=== PATIENT | female | born 1940 | race Caucasian/White ===

== ENCOUNTER 2020-04-14 10:24 | Outpatient (CLI) | payer MEDICARE, BC, SELFPAY ==
[2020-04-14 10:51] LABS: Basophils Percent Auto 0.1 % (0.2-1.2); Eosinophils Absolute Auto 0.1 K/mm3 (0-0.3); Eosinophils Percent Auto 1.4 % (0-4.4); Hematocrit 40.9 % (37.0-47.0); Immature Granulocyte Absolute 0.01 K/mm3 (0.00-0.031); Immature Granulocyte Percent A 0.1 % (0-0.5); Lymphocytes Percent Auto 22.4 % (18.3-44.2); Mean Corpuscular HGB Conc 31.8 g/dl (32-36); Mean Corpuscular Hemoglobin 29.2 pg (26-34); Mean Corpuscular Volume 91.9 fl (80-100); Mean Platelet Volume 10.2 fl (7.4-10.4); Monocytes Absolute Auto 0.6 K/mm3 (0.1-0.6); Monocytes Percent Auto 7.6 % (2.6-8.5); Neutrophils Absolute Auto 5.2 K/mm3 (1.3-6.7); Neutrophils Percent Auto 68.4 % (45.5-73.1); Platelet Count Result 216 k/mm3 (150-375); Red Blood Count 4.45 M/mm3 (4.2-5.4); Red Cell Distribution Width 13.2 % (11.5-14.5); White Blood Count 7.6 K/mm3 (4.5-10.0)
[2020-04-14 11:04] LABS: Blood Urea Nitrogen 16 mg/dL (7-17); Calcium 9.3 mg/dL (8.4-10.2); Carbon Dioxide 32 mmol/L (22-30); Chloride 100 mmol/L (98-107); Estimated Glomerular Filt Rate 43; Glucose 90 mg/dL (65-105); Potassium 4.4 mmol/L (3.4-5.0); Sodium 137 mmol/L (137-145)
== END 2020-04-14 10:25 | disposition home or self-care (01) ==
LOC: ANHLAB 10:32
PROVIDERS: PCP Family Medicine
DX: N18.3 Chronic kidney disease, stage 3 (moderate) (principal)
CPT/HCPCS: 36415; 80048; 85025

== ENCOUNTER 2020-05-28 15:09 | Outpatient (CLI) | payer MEDICARE, BC, SELFPAY ==
--- NOTE | ~2020-05-28 | XR_ITS ---
EXAMINATION: XR lumbar spine 2-3V DATE: 05/28/2020 15:42 INDICATION: Low back pain TECHNIQUE: Anteroposterior and lateral views of the lumbar spine, and cone-down lateral view of the l umbosacral junction were obtained. COMPARISON: 04/11/2017 FINDINGS: There is vertebroplasty change in a T12 burst fracture. There are 31 degrees of lumbar levo scoliosis. The lumbar vertebral body heights are maintained. There is severe loss of intervertebral d isc space height at L5-S1 and mild loss of intervertebral disc space height at L1-2 and L2-3. No lumb ar fracture is identified. There is moderate facet osteoarthritis of the lower lumbar spine. Mild jass ateral hip osteoarthritis is present. Cholecystectomy clips are noted in the right upper quadrant. Th e bowel gas pattern is normal. IMPRESSION: 1. Levoscoliosis and moderate spondylosis of the lumbar spine without acute findings or significant i nterval change. Reviewed, dictated and finalized at location A. IMPRESSION: 1. Levoscoliosis and moderate spondylosis of the lumbar spine without acute fin dings or significant interval change.
== END 2020-05-28 15:10 | disposition home or self-care (01) ==
LOC: ANHIMG 15:19
DX: M54.5 Low back pain (principal); M41.86 Other forms of scoliosis, lumbar region; M47.816 Spondylosis without myelopathy or radiculopathy, lumbar region
CPT/HCPCS: 72100

== ENCOUNTER → 2022-04-28 12:53 | Outpatient (CLI) | payer MEDICARE, BC, SELFPAY ==
--- NOTE | ~2022-04-28 | XR_ITS ---
EXAMINATION: XR hip LT 2V w AP pelvis INDICATION: Left hip pain TECHNIQUE: AP view the pelvis and two views left hip are obtained. COMPARISON: None available FINDINGS: Bone alignment is normal. There is no fracture. There is mild osteoarthritis of the hips. C alcified atherosclerosis is noted. IMPRESSION: 1. Mild osteoarthritis of the hips. Reviewed, dictated and finalized at location F.
== END ==
PROVIDERS: PCP Family Medicine; Visit Provider Family Medicine
DX: M25.552 Pain in left hip (principal); M16.0 Bilateral primary osteoarthritis of hip
CPT/HCPCS: 73502

== ENCOUNTER 2022-05-09 09:36 | Emergency (ER) | payer MEDICARE, BC, SELFPAY ==
--- NOTE | ~2022-05-09 | XR_ITS ---
XR chest 2V DATE: 05/09/2022 10:53 INDICATION: Chest/epigastric pain TECHNIQUE: AP and lateral views COMPARISON: 04/05/2017 portable AP chest 05/09/2022 CT thoracic and lumbar spine FINDINGS: Atrial septal closure device. Borderline heart size. Aortic calcification and tortuosity. N o hilar or mediastinal enlargement. No pulmonary infiltrate or consolidation, pleural effusion or pulmonary vascular congestion or pneumo thorax. Status post cholecystectomy. Diffuse osteopenia. Vertebroplasty at T12 burst fracture.. IMPRESSION: Status post atrial septoplasty Borderline heart size Aortic atherosclerosis No active pulmonary disease Status post vertebroplasty at T12 burst fracture Osteopenia Reviewed, dictated and finalized at location A.
--- NOTE | ~2022-05-09 | CT_ITS ---
EXAMINATION: CT thoracic lumbar wo con DATE: 05/09/2022 10:50 INDICATION: Fall. Right leg pain. Bilateral hip pain. TECHNIQUE: Computed tomography (CT) of the thoracic and lumbar spine was performed without intravenou s contrast. Automated exposure control and iterative reconstruction technique were employed. The dose -length product was 520.64 mGy-cm. COMPARISON: CT abdomen and pelvis 04/11/2017 FINDINGS: CT THORACIC SPINE: There is mild scarring at the lung apices. There is mild emphysema. There is 22 de grees dextroscoliosis of thoracolumbar spine. There is a chronic burst fracture of T12 with 3/5 loss of height, changes of vertebroplasty, and retropulsion of bone 3 mm into central spinal canal. There is mildly decreased disc height at T4-T5, T5-T6, and T6-T7 and moderately decreased disc height at T7 -T8, T8-T9, and T12-L1. There is multilevel mild facet joint osteoarthritis. No neural foraminal sten osis. There is mild central canal stenosis at T12. CT LUMBAR SPINE: There is severe atrophy of right kidney. There is 27 degrees levoscoliosis of lumbar spine. Vertebral body heights are normal. There is severely decreased disc height at L2-L3 and moder ately decreased disc height at L5-S1 with endplate remodeling. The following disc levels are specific ally discussed: L1-L2: The disc is bulging. There is mild bilateral facet joint osteoarthritis. There is mild right n eural foraminal stenosis. There is mild central canal stenosis. L2-L3: The disc is bulging. There is moderate right and mild left facet joint osteoarthritis. There i s moderate right and mild left neural foraminal stenosis. There is mild central canal stenosis. L3-L4: The disc is bulging. There is severe bilateral facet joint osteoarthritis. There is mild bilat eral neural foraminal stenosis. There is mild central canal stenosis. L4-L5: The disc is bulging. There is severe bilateral facet joint osteoarthritis. There is mild bilat eral neural foraminal stenosis. There is mild central canal stenosis. L5-S1: The disc is bulging. There is moderate right and severe left facet joint osteoarthritis. There is mild right and moderate left neural foraminal stenosis. There is mild central canal stenosis. IMPRESSION: 1. No acute fracture. 2. Moderate thoracic spondylosis and severe lumbar spondylosis. 3. Scoliosis. Reviewed, dictated and finalized at location B.
[2022-05-09 09:33] VITALS: BP 173/73; PULSE 82; RESP 11; O2SAT 100
--- NOTE | 2022-05-09 09:56 | ED.GENADULT ---
HPI - General Adult General Chief complaint: Extremity Injury, Lower Stated complaint: hip pain Time Seen by Provider: 05/09/22 09:49 Source: patient Mode of arrival: ambulatory Limitations: no limitations History of Present Illness HPI narrative: 82-year-old female brought in today by EMS presents with complaints of increased lower back pain and inability to get out of bed this morning due to pain. Daughter is at bedside which is who patient currently lives with. Over the last 3 weeks patient has had multiple falls. She is seen by primary x-rays were ordered. X-rays negative for anything acute. Patient has had no falls since the x-rays. Per daughter she thought patient was getting better but this morning patient was unable to get up out of bed so called 911. Patient notes increased pain and increased urination. Patient denies shortness of breath, chest pain, numbness to the lower extremities, incontinence urine or bowel, saddle paresthesia, abdominal pain, or diarrhea. Patient is vaccinated against flu and COVID. Related Data Home Medications Medication Instructions Recorded Confirmed amlodipine 5 mg tablet 5 mg PO DAILY 05/09/22 05/09/22 aspirin 81 mg tablet 81 mg PO DAILY 05/09/22 05/09/22 duloxetine 30 mg capsule,delayed 30 mg PO DAILY 05/09/22 05/09/22 release gabapentin 600 mg tablet 600 mg PO BID 05/09/22 05/09/22 hydrochlorothiazide 12.5 mg tablet 12.5 mg PO DAILY 05/09/22 05/09/22 hydrocodone 7.5 mg-acetaminophen 1 tablet PO TID PRN Pain 05/09/22 05/09/22 300 mg tablet irbesartan 150 mg tablet 150 mg PO DAILY 05/09/22 05/09/22 omeprazole 40 mg capsule,delayed mg 05/09/22 release Allergies Allergy/AdvReac Type Severity Reaction Status Date / Time No Known Allergies Allergy Unknown Unverified 05/09/22 09:47 Review of Systems Review of Systems: CONSTITUTIONAL: Denies fever, chills, or sweats. EYES: Denies visual changes, redness, or discharge. ENT: Denies rhinorrhea, congestion, sore throat, or otalgia. CARDIOVASCULAR: Denies chest pain, palpitations, or edema. RESPIRATORY: Denies cough or dyspnea. GASTROINTESTINAL: Denies abdominal pain, nausea, vomiting, or diarrhea. GENITOURINARY: Denies dysuria or hematuria. SKIN: Denies rash or itching. MUSCULOSKELETAL: Inability to get out of bed with assistance this morning. Back pain radiating up. Denies joint pain, or myalgia. NEUROLOGIC: Weakness. Denies headache, numbness, dizziness, or weakness. PSYCHIATRIC: Denies anxiety or depression. [facility] Past Medical History Medical History (Updated 05/09/22 @ 13:02 by Leona Tripp APRN) Chronic back pain greater than 3 months duration Essential hypertension History of CVA (cerebrovascular accident) Mass of skin of right shoulder Narcotic dependence Skin neoplasm Subcutaneous mass Family History Family History Father Acute myocardial infarction Sibling Family history of pancreatic cancer Family history of type 2 diabetes mellitus Social History Social History Smoking status: Current every day smoker Alcohol intake: current Exam Narrative: GENERAL: Well-appearing, well-nourished, and in no acute distress. HEAD: Normocephalic, atraumatic. EYES: PERRLA and EOMI. NECK: Supple. No adenopathy or masses. No carotid bruits or JVD CHEST: Clear to auscultation. No respiratory distress. No wheezes rales or rhonchi HEART: Regular rate and rhythm. No murmur heard. Normal peripheral pulses. ABDOMEN: Soft, nontender, nondistended, normal active bowel sounds. Back: No ecchymotic areas noted. No spinal process tenderness. EXTREMITIES: Normal range of motion. No edema. SKIN: Warm, dry, no rash. NEURO: No focal deficits. Alert and oriented x3. PSYCH: Normal mood and affect. Course Course Emergency Course: Labs and CTs discussed with daughter. Daughter at bedside. Patient does live wi
[2022-05-09 10:24] VITALS: BP 150/63; PULSE 78; RESP 12; O2SAT 99
[2022-05-09 10:40] LABS: Basophils Percent Auto 0.2 % (0.2-1.2); Eosinophils Absolute Auto 0.2 K/mm3 (0-0.3); Eosinophils Percent Auto 2.3 % (0-4.4); Hematocrit 37.8 % (37.0-47.0); Hemoglobin 11.9 g/dL (12.0-15.0); Immature Granulocyte Absolute 0.02 K/mm3 (0.00-0.031); Immature Granulocyte Percent A 0.2 % (0-0.5); Lymphocytes Absolute Auto 1.07 K/mm3 (0.9-3.2); Lymphocytes Percent Auto 12.8 % (18.3-44.2); Mean Corpuscular HGB Conc 31.5 g/dl (32-36); Mean Corpuscular Volume 92.2 fl (80-100); Mean Platelet Volume 9.7 fl (7.4-10.4); Monocytes Absolute Auto 0.5 K/mm3 (0.1-0.6); Monocytes Percent Auto 6.5 % (2.6-8.5); Neutrophils Absolute Auto 6.5 K/mm3 (1.3-6.7); Platelet Count Result 289 k/mm3 (150-375); Red Cell Distribution Width 12.9 % (11.5-14.5); White Blood Count 8.3 K/mm3 (4.5-10.0)
[2022-05-09 10:50] LABS: Alanine Aminotransferase 12 U/L (6-35); Albumin Level 4.1 g/dL (3.5-5.1); Alkaline Phosphatase 115 U/L (38-126); Anion Gap 5 mmol/L (8-16); Aspartate Amino Transferase 25 U/L (14-36); Bilirubin,Total 0.6 mg/dL (0.2-1.3); Blood Urea Nitrogen 21 mg/dL (7-17); Carbon Dioxide 29 mmol/L (22-30); Chloride 105 mmol/L (98-107); Estimated CRCL calculation 31 ml/min; Estimated Glomerular Filt Rate 60; Glucose 98 mg/dL (65-110); Potassium 4.3 mmol/L (3.4-5.0); Sodium 139 mmol/L (137-145)
[2022-05-09 11:10] VITALS: BP 162/61; PULSE 75; RESP 12; O2SAT 98
[2022-05-09 11:16] LABS: Appearance Urine Clear (Clear); Bilirubin Urine Negative (Negative); Blood Urine Negative (Negative); Glucose Urine UA Negative (Negative); Ketones Urine Negative (Negative); Leukocyte Esterase Ur Negative LEU/UL (Negative); Nitrate Urine Negative (Negative); Protein Urine Negative (Negative); Urobilinogen Urine 0.2 mg/dL (<2.0)
[2022-05-09 11:19] LABS: Add Urine Microscopic? NO; Color Urine Light Yellow (Yellow)
[2022-05-09 13:43] VITALS: BP 144/67; PULSE 89; RESP 16; O2SAT 95
== END 2022-05-09 13:46 | disposition home or self-care (01) ==
PROVIDERS: Emergency Provider Nurse Practitioner Family; PCP Family Medicine
DX: M54.50 Low back pain, unspecified (principal); G89.29 Other chronic pain; G30.9 Alzheimer's disease, unspecified; F02.80 Dementia in other diseases classified elsewhere, unspecified severity, without behavioral disturbance, psychotic disturbance, mood disturbance, and anxiety; I10 Essential (primary) hypertension; F17.210 Nicotine dependence, cigarettes, uncomplicated; Z79.82 Long term (current) use of aspirin; Z79.891 Long term (current) use of opiate analgesic; Z86.73 Personal history of transient ischemic attack (TIA), and cerebral infarction without residual deficits; W19.XXXA Unspecified fall, initial encounter
CPT/HCPCS: 36415; 51701; 71046; 72128; 72131; 80053; 81003; 85025; 99284

== ENCOUNTER 2022-08-22 11:55 | Inpatient (IN) | payer MEDICARE, BC, SELFPAY ==
[2022-08-22] VITALS (22 sets, daily range): BP systolic 126–166; BP diastolic 53–109; PULSE 69–94; RESP 11–20; TEMP 36.8; O2SAT 93–100; BMI 51.9
--- NOTE | ~2022-08-22 | US_ITS ---
EXAMINATION: US venous doppler [facility] DATE: 08/22/2022 14:36 INDICATION: Lower limb swelling TECHNIQUE: Grayscale ultrasound images without and with compression and Doppler ultrasound images of the bilateral lower extremity veins were obtained. COMPARISON: None. FINDINGS: Noncompressible deep venous thrombosis in one of the paired right peroneal veins of the calf. The sec ond right peroneal vein is patent. The visualized portions of right common femoral vein, profunda (de ep) femoral vein, femoral vein, popliteal vein, posterior tibial veins and greater saphenous vein out flow are patent. The visualized portions of left common femoral vein, profunda femoral vein, femoral vein, popliteal v ein, posterior tibial veins, peroneal veins and greater saphenous vein outflow are patent. IMPRESSION: 1. Right calf [id number] deep venous thrombosis in one of the paired right peroneal veins. Reviewed, dictated and finalized at location A. IMPRESSION: 1. Right calf [id number] deep venous thrombosis in one of the paired right peroneal veins.
--- NOTE | ~2022-08-22 | XR_ITS ---
EXAMINATION: XR chest 1V 08/22/2022 13:18 INDICATION: Altered mental status PROCEDURE: AP view of the chest COMPARISON: 05/09/2022 FINDINGS: The lungs are clear. There are changes of atrial septal plasty. There is atherosclerosis an d ectasia of the aorta. There is evidence for chronic granulomatous disease. The cardiomediastinal si lhouette is within normal limits. There are no pleural effusions. There is no pneumothorax suspecte d. IMPRESSION: 1: NO ACUTE CARDIOPULMONARY DISEASE. Reviewed, dictated and finalized at location B.
--- NOTE | ~2022-08-22 | CT_ITS ---
EXAMINATION: CT brain wo con INDICATION: Transient alteration of awareness COMPARISON: 05/12/2018 TECHNIQUE: Standard unenhanced head CT. The dose-length product (DLP) was 605.33 mGy-cm. The mA was a djusted according to patient size. Iterative reconstruction technique was employed. FINDINGS: There is no acute intraparenchymal hemorrhage. No evidence of mass lesion. No evidence of a cute infarction. There is encephalomalacia in the left frontal lobe at the site of prior infarction. Old cerebellar infarcts are also noted. There is moderate periventricular and subcortical hypodensity probably related to small vessel ischemic disease. There is moderate prominence of the sulci and jamilah tricles related to cerebral atrophy. Intracranial calcified cerebral atherosclerosis is noted. There are no extra-axial collections. There is no mass effect or midline shift. Changes in the globes are l ikely from ocular lens surgery. The visualized sinuses and mastoid air cells are well aerated. IMPRESSION: 1. Areas of prior infarction without acute intracranial abnormality. 2. Age related findings. Reviewed, dictated and finalized at location A.
--- NOTE | ~2022-08-22 | CT_ITS ---
EXAMINATION: CTA chest PE protocol DATE: 08/24/2022 18:13 INDICATION: Lower limb swelling. Deep venous thrombosis. Elevated d-dimer. TECHNIQUE: Computed tomography (CT) pulmonary angiogram of the chest was performed with 100 mL Omnipa que-350 intravenous contrast. Additional 3D reconstructions utilizing coronal maximum intensity proje ction (MIP) were performed. Automated exposure control and iterative reconstruction technique were em ployed. The dose-length product was 220.17 mGy-cm. COMPARISON: None FINDINGS: Excellent contrast opacification of the pulmonary arteries. There is mild streak artifact from dense contrast in the superior vena cava and right atrium. Mild scattered respiratory motion artifact most prominent at the lung bases where it decreases sensitivity in some of the smaller subsegmental pulmon lisseth arteries. Small filling defect consistent with pulmonary embolism in a subsegmental pulmonary art eries in the posterior basilar segment of the right lower lobe. No other pulmonary emboli. Mild emphy sema with mild biapical pleural-parenchymal scarring additional mild atelectasis/scarring at the medi al left lung base. Very small posterior layering left pleural effusion. No pneumonia, pulmonary edema , pneumothorax or right-sided pleural effusion. Cardiomegaly. Atherosclerotic and/or artery calcifica tion. Amplatz type ASD closure device in expected position. Atherosclerotic calcification along the n ormal caliber thoracic aorta. No pathologically enlarged thoracic lymphadenopathy. Cholecystectomy cl ips at the gallbladder fossa. Severe atrophy of the visualized portion of the right kidney. No change since thoracic spine CT dated 05/09/2022 in a T12 burst fracture with 60% vertebral body height loss and changes of prior vertebroplasty. More recent L1 burst fracture with 30% vertebral body height los s and 4 mm retropulsion which is new since the prior CT. IMPRESSION: 1. Single pulmonary embolism in subsegmental pulmonary artery of the right lower lobe. 2. Mild emphysema. 3. Very small left pleural effusion. 4. Cardiomegaly. 5. Age-indeterminate L1 burst fracture, new since 05/09/2022 Reviewed, dictated and finalized at location A. IMPRESSION: 1. Single pulmonary embolism in subsegmental pulmonary artery of the right lowe r lobe. 2. Mild emphysema. 3. Very small left pleural effusion. 4. Cardiomegaly. 5. Age-indeterminate L1 burst fracture, new since 05/09/2022
--- NOTE | 2022-08-22 12:19 | ECG_ITS ---
Measurements Intervals [place] Rate: 80 P: 1 NM: 136 QRS: -15 QRSD: 93 T: 73 QT: 432 QTc: 500 Interpretive Statements SINUS RHYTHM VENTRICULAR COUPLET AND VENTRICULAR PREMATURE COMPLEX BORDERLINE ST-T WAVE ABNORMALITY- HIGH LATERAL LEADS BASELINE ARTIFACT- I, II, III, AVR, AVL, AVF BORDERLINE ECG NO PREVIOUS ECG AVAILABLE FOR COMPARISON Electronically Signed On 08-22-2022 12:51:45 CDT by Rome Nava D.O.
[2022-08-22 12:39] LABS: Basophils Percent Auto 0.2 % (0.2-1.2); Eosinophils Percent Auto 0.2 % (0-4.4); Hematocrit 38.7 % (37.0-47.0); Hemoglobin 12.7 g/dL (12.0-15.0); Immature Granulocyte Absolute 0.07 K/mm3 (0.00-0.031); Immature Granulocyte Percent A 0.6 % (0-0.5); Lymphocytes Absolute Auto 2.13 K/mm3 (0.9-3.2); Lymphocytes Percent Auto 18.7 % (18.3-44.2); Mean Corpuscular HGB Conc 32.8 g/dl (32-36); Mean Corpuscular Volume 88.4 fl (80-100); Mean Platelet Volume 9.4 fl (7.4-10.4); Monocytes Percent Auto 8.5 % (2.6-8.5); Neutrophils Absolute Auto 8.2 K/mm3 (1.3-6.7); Neutrophils Percent Auto 71.8 % (45.5-73.1); Platelet Count Result 339 k/mm3 (150-375); Red Blood Count 4.38 M/mm3 (4.2-5.4); Red Cell Distribution Width 13.8 % (11.5-14.5); White Blood Count 11.4 K/mm3 (4.5-10.0)
[2022-08-22 12:54] LABS: Alanine Aminotransferase 25 U/L (6-35); Albumin Level 3.7 g/dL (3.5-5.1); Alkaline Phosphatase 92 U/L (38-126); Anion Gap 12 mmol/L (8-16); Aspartate Amino Transferase 38 U/L (14-36); Bilirubin,Total 0.6 mg/dL (0.2-1.3); Blood Urea Nitrogen 14 mg/dL (7-17); Calcium 8.5 mg/dL (8.4-10.2); Carbon Dioxide 36 mmol/L (22-30); Chloride 81 mmol/L (98-107); Estimated CRCL calculation 37 ml/min; Estimated Glomerular Filt Rate > 60; Glucose 103 mg/dL (65-110); Potassium 2.5 mmol/L (3.4-5.0); Sodium 129 mmol/L (137-145)
[2022-08-22 12:55] LABS: Partial Thromboplastin Time 25.3 SECONDS (22.3-36.8); Prothrombin Time 13.1 Seconds (11.1-14.7)
--- NOTE | 2022-08-22 13:02 | ED.GENADULT ---
HPI - General Adult General Chief complaint: Altered Mental Status Stated complaint: Given Wrong Medications, Altered Time Seen by Provider: 08/22/22 12:51 History of Present Illness HPI narrative: this is an 82-year-old female presenting ED with altered mental status. She lives at a assisted living. This morning she received the wrong medications Due to a medical mix up. Medications she received included several multivitamins as well as montelukast and an ARB. The patient did not receive her own hypertensive. The patient herself does not know when she is in the hospital. She is A&O x3 but is slightly confused. She denies chest pain, difficulty breathing, abdominal pain, urinary symptoms, GI symptoms. Related Data Home Medications Medication Instructions Recorded Confirmed amlodipine 5 mg tablet 5 mg PO DAILY 05/09/22 05/09/22 aspirin 81 mg tablet 81 mg PO DAILY 05/09/22 05/09/22 duloxetine 30 mg capsule,delayed 30 mg PO DAILY 05/09/22 05/09/22 release gabapentin 600 mg tablet 600 mg PO BID 05/09/22 05/09/22 hydrochlorothiazide 12.5 mg tablet 12.5 mg PO DAILY 05/09/22 05/09/22 hydrocodone 7.5 mg-acetaminophen 1 tablet PO TID PRN Pain 05/09/22 05/09/22 300 mg tablet irbesartan 150 mg tablet 150 mg PO DAILY 05/09/22 05/09/22 omeprazole 40 mg capsule,delayed mg 05/09/22 release Allergies Allergy/AdvReac Type Severity Reaction Status Date / Time No Known Allergies Allergy Unknown Unverified 05/09/22 09:47 Review of Systems Review of Systems: CONSTITUTIONAL: Denies night sweats. EYES: No eye pain ENT: Denies rhinorrhea CARDIOVASCULAR: Denies palpitations RESPIRATORY: Denies hemoptysis GASTROINTESTINAL: Denies hematemesis GENITOURINARY: Denies hematuria. SKIN: Denies rash MUSCULOSKELETAL: Denies myalgia. NEUROLOGIC: Denies weakness. PSYCHIATRIC: Denies delusions PMFSH Past Medical History Medical History Chronic back pain greater than 3 months duration Essential hypertension History of CVA (cerebrovascular accident) Mass of skin of right shoulder Narcotic dependence Skin neoplasm Subcutaneous mass Family History Family History Father Acute myocardial infarction Sibling Family history of pancreatic cancer Family history of type 2 diabetes mellitus Social History Social History Smoking status: Current every day smoker Alcohol intake: current Exam Narrative: APPEARANCE: No apparent distress. A&O x3 Head atraumatic. EYES: PERRLA/EOMI, NOSE: Normal no drainage NECK: Supple, Trachea midline RESPIRATORY: CTAB, No increased work of breathing. CARDIOVASCULAR: S1S2 appreciated. patient has lower extremity edema of the left greater than right ABDOMINAL: Soft, nontender, nondistended, MUSCULOSKELETAl: No obvious deformities NEURO: Alert. Moving 4/4 extremities SKIN:: Warm, dry. Normal color PSYCHIATRIC: Normal affect Course Vital Signs Vital signs: Vital Signs Pulse Rate 85 08/22/22 12:04 Respiratory Rate 14 08/22/22 12:04 Pulse Oximetry 99 08/22/22 12:04 Temperature 98.2 F 08/22/22 12:05 Pulse Rate 80 08/22/22 13:41 Respiratory Rate 15 08/22/22 13:41 Blood Pressure 145/79 H 08/22/22 13:41 Pulse Oximetry 100 08/22/22 13:41 Oxygen Delivery Room Air 08/22/22 12:05 Medical Decision Making [facility] Narrative Medical decision making narrative: this is an 82-year-old woman who lives in assisted living coming to the ED for altered mental status. There was a mixup of her medications this morning. Review the medications that were switched and none of them should cause altered mental status. A broad workup has been ordered including blood cultures, CT of the head, chest x-ray and EKG. Lab work was sent for potassium of 2.5. This will be repleted by IV as well as orally. Patient arnold
[2022-08-22 13:16] LABS: Appearance Urine Slightly Cloudy (Clear); Bilirubin Urine 1+ (Negative); Blood Urine 2+ (Negative); Color Urine Yellow (Yellow); Glucose Urine UA Negative (Negative); Ketones Urine Trace mg/dL (Negative); Leukocyte Esterase Ur 3+ LEU/UL (Negative); Nitrate Urine Negative (Negative); Protein Urine 1+ mg/dL (Negative); Specific Grav Ur 1.015 (1.001-1.035)
[2022-08-22] MEDS: SODIUM CHLORIDE 0.9% IV 1,000 ML 999 ML IV CONT (13:31)
[2022-08-22] MEDS: POTASSIUM CHLORIDE 20 MEQ TABLET 40 MEQ PO (13:31)
[2022-08-22] MEDS: POTASSIUM CHLORIDE INJ 40 MEQ in SODIUM CHLORIDE 0.9% IV 500 ML 130 MEQ IVPB ×2 (13:31→21:50)
[2022-08-22 13:39] LABS: SARS-CoV-2 RNA PCR Negative
[2022-08-22 13:40] LABS: Bacteria Urine Trace /hpf; Mucus Urine Rare /lpf; RBC Urine 21-50 /hpf (0-2); Squamous Epithelial Cell Urine Many /hpf (Few); WBC Urine >75 /hpf
[2022-08-22 13:55] LABS: Magnesium 2.1 mg/dL (1.6-2.3)
[2022-08-22 14:11] LABS: Add Urine Microscopic? YES
--- NOTE | 2022-08-22 15:30 | PM.IMHP ---
H&P: HPI History of Present Illness Date/Time: 08/22/22 15:30 Chief Complaint: Confusion after receiving the wrong medications. Narrative: This is a pleasant 82-year-old female with dementia and hypertension who presented to the ED for evaluation of confusion after receiving the wrong medications. She is a fair historian and her daughter at bedside provides additional history, with the patient's permission. The patient lives in assisted living at [place] and today she was inadvertently given the wrong medications to include several multivitamins, montelukast, and an ARB. The daughter was notified of this medication error and she went to visit her mother at which time she wanted her to be brought in for evaluation as she seemed to be more confused than usual. The patient's vital signs were stable on arrival to the emergency department. Workup was significant for a white blood cell count of 11.4, sodium 129, potassium 2.5, chloride 81, carbon dioxide 36. UA was nitrite negative but was leukocyte esterase positive with greater than 75 wbc's and trace bacteria however many squamous cells were noted. With further questioning the patient was recently treated for urinary tract infection, perhaps 2 weeks ago or so, but the patient continues to have symptoms including mild dysuria, urgency, and frequency. She has perhaps not been eating and drinking as much as usual but otherwise she does not feel on well. She denies fever, chills, sweats, cold and flu symptoms, chest pain, shortness of breath, focal weakness, paresthesias, facial droop, dysarthria, dysphagia, nausea, vomiting, and diarrhea. Review of Systems Review of Systems: Twelve systems were reviewed. The patient has chronic back pain due to spinal arthritis for which she takes gabapentin, duloxetine, and hydrocodone as needed. She has not had any recent change in medications. She ambulates with a walker but the last several weeks she has been more weak than usual, attributed to her urinary tract infection. She has had a couple of slow motion falls where she slowly goes down to the floor onto her side. She has not had any head trauma or loss of consciousness. Except as documented, all other systems were reviewed and are negative. 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 Code status: Full code. Smoking status: Former smoker Alcohol intake: never Alcohol use details: Rare alcohol use. Substance use: never Additional living arrangements comments: Assisted living at [facility] in [place]. Spiritual care concerns: No Meds Home Medications and Allergies Home Medications Medication Instructions Recorded Confirmed Type amlodipine 5 mg tablet 5 mg PO DAILY 05/09/22 08/22/22 History aspirin 81 mg tablet 81 mg PO DAILY 05/09/22 08/22/22 History duloxetine 30 mg capsule,delayed 30 mg PO DAILY 05/09/22 08/22/22 History release gabapentin 600 mg tablet 600 mg PO BID 05/09/22 08/22/22 History hydrochlorothiazide 12.5 mg tablet 12.5 mg PO DAILY 05/09/22 08/22/22 History hydrocodone 7.5 mg-acetaminophen 1 tablet PO TID PRN Pain 05/09/22 08/22/22 History 300 mg tablet omeprazole 40 mg capsule,delayed 40 mg PO DAILY 05/09/22 08/22/22 History release potassi
--- NOTE | 2022-08-22 16:25 | ADMGEN ---
This patient, Rhea Dimas, was admitted to [facility] Surg Room 307-02. Patient/family oriented to hospital policies and general routines including ID bracelet, bed and alarms, visiting hours, pain management, procedures, bathroom and other care routines, personal items, smoking policy, room service/diet, and visiting hours. Information on how to activate the Rapid Response Team has been discussed. Patient/Family are encouraged to report perceived risks to care and to ask questions if they do not understand what they are told or what they should do.
[2022-08-22 23:02] LABS: Anion Gap 6 mmol/L (8-16); Blood Urea Nitrogen 13 mg/dL (7-17); Calcium 8.4 mg/dL (8.4-10.2); Carbon Dioxide 32 mmol/L (22-30); Chloride 94 mmol/L (98-107); Estimated CRCL calculation 46 ml/min; Estimated Glomerular Filt Rate > 60; Glucose 99 mg/dL (65-110); Potassium 2.8 mmol/L (3.4-5.0); Sodium 132 mmol/L (137-145)
[2022-08-23] MEDS: POTASSIUM CHLORIDE 20 MEQ TABLET 40 MEQ PO (00:30)
[2022-08-23] MEDS: GABAPENTIN 300 MG CAPSULE 600 MG PO ×3 (00:30→22:00)
[2022-08-23] MEDS: SODIUM CHLORIDE 0.9% IV 1,000 ML 100 ML IV CONT (01:24)
[2022-08-23] MEDS: POTASSIUM CHLORIDE INJ 40 MEQ in SODIUM CHLORIDE 0.9% IV 500 ML 130 MEQ IVPB (02:10)
[2022-08-23] MEDS: HYDROcodone/acetaminophen (*CRX) 7.5-325 MG TABLET 1 TAB PO ×2 (02:37→22:00)
[2022-08-23 06:00] LABS: Hematocrit 36.7 % (37.0-47.0); Hemoglobin 11.9 g/dL (12.0-15.0); Mean Corpuscular HGB Conc 32.4 g/dl (32-36); Mean Corpuscular Volume 89.5 fl (80-100); Mean Platelet Volume 9.8 fl (7.4-10.4); Platelet Count Result 306 k/mm3 (150-375); Red Cell Distribution Width 14.4 % (11.5-14.5); White Blood Count 9.2 K/mm3 (4.5-10.0)
[2022-08-23 06:21] LABS: Alanine Aminotransferase 23 U/L (6-35); Alkaline Phosphatase 89 U/L (38-126); Anion Gap 5 mmol/L (8-16); Aspartate Amino Transferase 31 U/L (14-36); Bilirubin,Total 0.5 mg/dL (0.2-1.3); Blood Urea Nitrogen 9 mg/dL (7-17); Calcium 8.5 mg/dL (8.4-10.2); Carbon Dioxide 33 mmol/L (22-30); Chloride 96 mmol/L (98-107); Estimated CRCL calculation 46 ml/min; Estimated Glomerular Filt Rate > 60; Glucose 92 mg/dL (65-110); Magnesium 1.9 mg/dL (1.6-2.3); Potassium 3.5 mmol/L (3.4-5.0); Sodium 134 mmol/L (137-145)
[2022-08-23 08:00] VITALS: BP 148/53; PULSE 80; PULSE 94; RESP 14; TEMP 36.8; O2SAT 98
[2022-08-23] MEDS: ASPIRIN 81 MG ENTERIC TABLET PO (08:46)
[2022-08-23] MEDS: amLODIPine BESYLATE 5 MG TABLET PO (08:46)
[2022-08-23] MEDS: POTASSIUM CHLORIDE 10 MEQ TABLET.ER PO (08:46)
[2022-08-23] MEDS: PANTOPRAZOLE 40 MG TABLET PO (08:46)
[2022-08-23] MEDS: ENOXAPARIN 40 MG/0.4 ML SYRINGE SUB-Q (08:47)
[2022-08-23] MEDS: DULoxetine HCL 30 MG CAPSULE.DR PO (08:47)
--- NOTE | 2022-08-23 10:51 | PM.IMPN ---
Progress Note: A&P Assessment and Plan (1) Weakness: Code(s): R53.1 - Weakness Status: Acute Assessment and Plan: Due to a combination of chronic debility, dehydration, electrolyte abnormalities, and possible urinary tract infection. Initiate fall precautions. PT / OT consulted. (2) Dehydration: Code(s): E86.0 - Dehydration Status: Acute Assessment and Plan: IV fluids. (3) Hypokalemia: Code(s): E87.6 - Hypokalemia Status: Acute Assessment and Plan: Monitor. Hydrochlorothiazide on hold (4) Urinary tract infection: Code(s): N39.0 - Urinary tract infection, site not specified Status: Acute Assessment and Plan: UA looks contaminated culture pending IV antibiotics. (5) Dementia: Code(s): F03.90 - Unspecified dementia without behavioral disturbance Status: Acute Assessment and Plan: Patient lives in assisted living facility. (6) Chronic back pain: Code(s): M54.9 - Dorsalgia, unspecified; G89.29 - Other chronic pain Status: Acute Assessment and Plan: Continue gabapentin, duloxetine, and hydrocodone as needed. (7) long-term prescription opiate use: Code(s): Z79.891 - long-term (current) use of opiate analgesic Status: Acute Assessment and Plan: She is prescribed hydrocodone p.r.n. as needed which will be continued. (8) Thrombosis of right peroneal vein: Code(s): I82.451 - Acute embolism and thrombosis of right peroneal vein Status: Acute Assessment and Plan: Lower extremity venous Doppler ultrasound showed a thrombosis in 1 of 2 right peroneal veins; she is not symptomatic with this. Per discussion patient and daughter Decision has been made to not pursue anticoagulation and pursue serial ultrasounds. (9) Hyponatremia: Code(s): E87.1 - Hypo-osmolality and hyponatremia Status: Acute Assessment and Plan: Improving, monitor. Asymptomatic Subjective Date/time seen: 08/23/22 10:51 no new complaints. No leg pain. No chest pain. Has very little appetite. Exam Narrative: General: Mildly ill-appearing female supine in bed. HEENT: Normocephalic, atraumatic. PERRL, EOMI. Sclera anicteric. Tacky mucous membranes. Neck: Supple. No obvious carotid bruits though she has difficulties holding her breath. Respiratory: Lungs are clear to auscultation bilaterally. Cardiovascular: Regular rate and rhythm with S1-S2. Gastrointestinal: Abdomen is soft and nontender with positive bowel sounds. No CVA tenderness. No guarding or rebound tenderness. Skin: Warm and dry. No rash or lesions on limited exam. Extremities: No cyanosis or clubbing. 1+ bilateral lower extremity edema, left greater than right. No palpable knots or cords. Negative Alyssa sign bilaterally. Neurological: Alert and oriented x3. Cranial nerves 2-12 are grossly intact. Speech is clear. No facial asymmetry. Generalized weakness without focal findings. Psychiatric: Pleasant and cooperative with normal mood and affect. She suffers from short-term memory loss. Objective Data Vital Signs Vital Signs: Vital Signs - 24 hr 08/22/22 12:05 08/22/22 12:04 08/22/22 12:06 Temperature 98.2 F Pulse Rate 75 85 80 Respiratory Rate 20 14 14 Blood Pressure 126/68 126/68 Pulse Oximetry 100 99 100 Oxygen Delivery Room Air 08/22/22 12:19 08/22/22 12:45 08/22/22 12:47 Temperature Pulse Rate 86 75 80 Respiratory Rate 18 15 17 Blood Pressure 144/76 H Pulse Oximetry 100 93 100 Oxygen Delivery 08/22/22 13:03 08/22/22 13:20 08/22/22 13:30 Temperature Pulse Rate 79 69 76 Respiratory Rate 12 11 L 11 L Blood Pressure Pulse Oximetry 100 100 Oxygen Delivery 08/22/22 13:41 08/22/22 13:42 08/22/22 14:16 Temperature Pulse Rate 80 80 80 Respiratory Rate 15 12 14 Blood Pressure 145/79 H Pulse Oximetry 100 100 9
[2022-08-23 11:22] VITALS: BMI 20.1
[2022-08-23 13:39] VITALS: BP 117/71; PULSE 99; RESP 18; TEMP 35.7; O2SAT 97
[2022-08-23 16:00] VITALS: PULSE 92
[2022-08-23 20:00] VITALS: PULSE 79
[2022-08-23 22:00] VITALS: BP 143/66; PULSE 86; RESP 16; TEMP 35.6; O2SAT 96
[2022-08-24] VITALS (9 sets, daily range): BP systolic 90–152; BP diastolic 50–89; PULSE 52–110; RESP 16–23; TEMP 36.2–36.8; O2SAT 95–99
[2022-08-24] MEDS: ENOXAPARIN 40 MG/0.4 ML SYRINGE SUB-Q (09:13)
[2022-08-24] MEDS: ASPIRIN 81 MG ENTERIC TABLET PO (09:13)
[2022-08-24] MEDS: POTASSIUM CHLORIDE 10 MEQ TABLET.ER PO (09:13)
[2022-08-24] MEDS: DULoxetine HCL 30 MG CAPSULE.DR PO (09:13)
[2022-08-24] MEDS: PANTOPRAZOLE 40 MG TABLET PO (09:13)
[2022-08-24] MEDS: amLODIPine BESYLATE 5 MG TABLET PO (09:13)
[2022-08-24] MEDS: GABAPENTIN 300 MG CAPSULE 600 MG PO ×2 (09:13→20:34)
[2022-08-24] MEDS: HYDROcodone/acetaminophen (*CRX) 7.5-325 MG TABLET 1 TAB PO ×2 (09:23→23:27)
[2022-08-24 10:33] LABS: Anion Gap 10 mmol/L (8-16); Blood Urea Nitrogen 13 mg/dL (7-17); Calcium 8.6 mg/dL (8.4-10.2); Carbon Dioxide 31 mmol/L (22-30); Chloride 92 mmol/L (98-107); Estimated CRCL calculation 42 ml/min; Estimated Glomerular Filt Rate > 60; Glucose 96 mg/dL (65-110); Potassium 3.2 mmol/L (3.4-5.0); Sodium 133 mmol/L (137-145)
--- NOTE | 2022-08-24 14:05 | PM.IMPN ---
Progress Note: A&P Assessment and Plan (1) Hypotension: Code(s): I95.9 - Hypotension, unspecified Status: Acute Assessment and Plan: Patient's blood pressure has been well controlled since admission until this afternoon when it was soft at 90/50. She is not on anti-HTN medications but did get hydrocodone/Acetaminophen this morning which could be the cause. COVID was negative. Will give IV fluids. Check cortisol level. (2) Thrombosis of right peroneal vein: Code(s): I82.451 - Acute embolism and thrombosis of right peroneal vein Status: Acute Assessment and Plan: DDimer positive. Lower extremity venous Doppler ultrasound showed a thrombosis in 1 of 2 right peroneal veins; she is not symptomatic with this. Per discussion patient and daughter Decision has been made to not pursue anticoagulation and pursue serial ultrasounds. Check CTA given the HoTN to exclude occult PEs. (3) Weakness: Code(s): R53.1 - Weakness Status: Acute Assessment and Plan: Weakness likely due to combination of debility, dehydration, electrolyte abnormalities and possibly from taking the incorrect medications. This has improved. Continue PT and OT. (4) Dehydration: Code(s): E86.0 - Dehydration Status: Acute Assessment and Plan: Patient with dehydration. IV fluids have been stopped when resume because of her low blood pressure. (5) Hypokalemia: Code(s): E87.6 - Hypokalemia Status: Acute Assessment and Plan: Patient with persistent hypokalemia. Will give extra potassium today. Check cortisol. (6) Dementia: Code(s): F03.90 - Unspecified dementia without behavioral disturbance Status: Acute Assessment and Plan: Patient with known dementia. She is alert but confused. She is not on medications for dementia and. She is on Cymbalta for depression. Patient lives in assisted living facility. Continue to follow. (7) Hyponatremia: Code(s): E87.1 - Hypo-osmolality and hyponatremia Status: Acute Assessment and Plan: Sodium was 129 on admission. This has improved to 133. Continue to monitor. Probably related to the hydrochlorothiazide. (8) Chronic back pain: Code(s): M54.9 - Dorsalgia, unspecified; G89.29 - Other chronic pain Status: Acute Assessment and Plan: Stable and chronic. Continue gabapentin and duloxetine. Hydrocodone available as needed. COntinue narcotic for now but may need to stop if related to her HoTN. 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 as needed which has been continued. As above (10) Urinary tract infection: Code(s): N39.0 - Urinary tract infection, site not specified Status: Acute Assessment and Plan: UA noted. Urine culture negative. Will stop Rocephin. UTI ruled out Subjective Date/time seen: 08/24/22 14:05 Interval history: 82yo female with dementia and HTN here for confusion after taking the wrong medications. Patient is alert but confused and unable to provide accurate history. Patient's blood pressure soft today. Patient denies any chest pain, shortness of breath, lightheadedness, nausea, vomiting, diarrhea, or other complaints. No pleuritic chest pain. Exam Narrative: AF 97.2 150/72 69 23 98% ra Gen - NARD sititng up in chair Chest - CTA bilaterally, nml RR CV - irregular. Tele showing sinus arrhythmia and PVCs. Abd - Soft, NT/ND, Positive BS Ext - trace L>R pedal edema Neuro - Alert but confused Psych - Nml mood and affect Skin - Warm and dry Objective Data Vital Signs Vital Signs: Vital Signs - 24 hr 08/23/22 16:00 08/23/22 22:00 08/23/22 20:00 Temperature 96.1 F L Pulse Rate 92 86 79 Respiratory Rate 16 Blo
[2022-08-24] MEDS: POTASSIUM CHLORIDE 20 MEQ TABLET 40 MEQ PO (15:03)
[2022-08-24] MEDS: SODIUM CHLORIDE 0.9% IV 1,000 ML 70 ML IV CONT (15:03)
[2022-08-25] VITALS (10 sets, daily range): BP systolic 134–153; BP diastolic 69–76; PULSE 68–110; RESP 16; TEMP 36.1; O2SAT 92–99
--- NOTE | 2022-08-25 | ECHO_ITS ---
Patient Info Name: Rhea Dimas Age: 82 years : 1940 Gender: Female Ht: 66 in Wt: 127 lbs BSA: 1.63 m2 HR: 97 bpm BP: 143 / 71 mmHg Heart Rhythm: Sinus Rhythm Exam Date: 08/25/2022 4:38 PM Exam Location: [facility] Patient Status: Inpatient Admit Date: 08/22/2022 Staff Ordering Physician: Carlito Holder MD Wildfire Prevention Specialist: Lata Doty RDCS Attending Provider: Ryne Ponce MD Exam Type: CA echo doppler color flow Study Info Indications - atrial fibrillation Complete two-dimensional, color flow and Doppler transthoracic echocardiogram is performed. Summary 1. Complete two-dimensional, color flow and Doppler transthoracic echocardiogram is performed. 2. Left ventricular systolic function is moderately reduced, estimated at 30-35%. 3. Left atrial chamber dimension is severely enlarged. 4. There is mild to moderate mitral valve regurgitation. Left Ventricle Left ventricular chamber dimension is normal. Left ventricular systolic function is moderately reduced, estimated at 30-35%. There is no increased left ventricular wall thickness. Right Ventricle Right ventricular chamber dimension is normal. Right ventricular systolic function is normal. Left Atria Left atrial chamber dimension is severely enlarged. Right Atria Right atrial chamber dimension is normal. Aortic Valve The aortic valve is not well visualized. There is no aortic valve stenosis. There is no aortic valve regurgitation. Pulmonic Valve The pulmonic valve is not well visualized. Mitral Valve The mitral valve has thickened leaflets. There is no mitral valve stenosis. There is mild to moderate mitral valve regurgitation. Tricuspid Valve The tricuspid valve leaflets are normal. There is no significant tricuspid valve stenosis. There is mild tricuspid valve regurgitation. Pericardium/Pleural There is no pericardial effusion. Aorta The aortic root size at the sinus of Valsalva is normal. Left Ventricular Outflow Tract Name Value Normal LVOT 2D LVOT Diameter 2.0 cm LVOT Doppler LVOT Peak Velocity 86 cm/s LVOT Peak Gradient 3 mmHg LVOT Mean Gradient 2 mmHg LVOT VTI 16 cm LVOT VTI/AV VTI Ratio 0.9 LVOT Stroke Volume 49 ml LVOT CO 4.9 l/min LVOT CI 3.0 l/min/m2 Mitral Valve Name Value Normal MV Doppler MV Peak Gradient 10 mmHg MV Mean Gradient 3 mmHg MV Area (Cont Eq VTI) 2.2 cm2 MV Annular TDI MV Septal e' Velocity 2.2 c
[2022-08-25 06:07] LABS: Hematocrit 45.9 % (37.0-47.0); Hemoglobin 14.5 g/dL (12.0-15.0); Mean Corpuscular HGB Conc 31.6 g/dl (32-36); Mean Corpuscular Hemoglobin 29.1 pg (26-34); Mean Platelet Volume 9.9 fl (7.4-10.4); Platelet Count Result 302 k/mm3 (150-375); Red Blood Count 4.99 M/mm3 (4.2-5.4); Red Cell Distribution Width 15.1 % (11.5-14.5); White Blood Count 9.6 K/mm3 (4.5-10.0)
[2022-08-25 08:33] LABS: Albumin Level 4.1 g/dL (3.5-5.1); Anion Gap 15 mmol/L (8-16); Blood Urea Nitrogen 17 mg/dL (7-17); Calcium 9.3 mg/dL (8.4-10.2); Carbon Dioxide 24 mmol/L (22-30); Chloride 95 mmol/L (98-107); Estimated CRCL calculation 37 ml/min; Estimated Glomerular Filt Rate 60; Glucose 98 mg/dL (65-110); Phosphorus 3.9 mg/dL (2.5-4.5); Potassium 3.9 mmol/L (3.4-5.0); Sodium 134 mmol/L (137-145)
[2022-08-25] MEDS: PANTOPRAZOLE 40 MG TABLET PO (08:58)
[2022-08-25] MEDS: ASPIRIN 81 MG ENTERIC TABLET PO (08:59)
[2022-08-25] MEDS: DULoxetine HCL 30 MG CAPSULE.DR PO (08:59)
[2022-08-25] MEDS: GABAPENTIN 300 MG CAPSULE 600 MG PO ×2 (08:59→19:48)
[2022-08-25] MEDS: amLODIPine BESYLATE 5 MG TABLET PO (08:59)
[2022-08-25] MEDS: POTASSIUM CHLORIDE 10 MEQ TABLET.ER PO (08:59)
[2022-08-25] MEDS: APIXABAN 5 MG TABLET 10 MG PO ×2 (09:00→19:48)
--- NOTE | 2022-08-25 14:50 | ECG_ITS ---
Measurements Intervals [place] Rate: 144 P: MD: 0 QRS: 13 QRSD: 82 T: 31 QT: 276 QTc: 427 Interpretive Statements ATRIAL FIBRILLATION WITH RAPID VENTRICULAR RESPONSE DELAYED PRECORDIAL R/S TRANSITION BASELINE ARTIFACT- II, III, AVF ABNORMAL ECG COMPARED TO ECG 08/22/2022 12:25:28 ATRIAL FIBRILLATION NOW PRESENT Electronically Signed On 08-25-2022 20:07:38 CDT by Rome Nava D.O.
--- NOTE | 2022-08-25 14:54 | PM.IMPN ---
Progress Note: A&P Assessment and Plan (1) Atrial fibrillation with rapid ventricular response: Code(s): I48.91 - Unspecified atrial fibrillation Status: Acute Assessment and Plan: Spoke with family earlier today with plans for dicharge. However patient developed severe tachycardia that appears to be atrial fibrillation by the monitor. This occurred after her walking back from the bathroom. She has no history of atrial fibrillation. Related to new PE? TSH normal. Will check EKG. Blood pressure is 183/71. Lopressor 5 mg IV x1. Start oral metoprolol. Stop Norvasc. Currently on Eliquis. Check Echo. Continue tele. (2) Hypotension: Code(s): I95.9 - Hypotension, unspecified Status: Acute Assessment and Plan: Patient's blood pressure has been well controlled since admission until the afternoon on 08/25 when it was soft at 90/50. She did get Norvasc and hydrocodone/Acetaminophen so could be the cause. COVID was negative. TSH and Cortisol level okay. BP better now. Follow. (3) Pulmonary emboli: Code(s): I26.99 - Other pulmonary embolism without acute cor pulmonale Status: Acute Assessment and Plan: DDimer positive. Lower extremity venous Doppler ultrasound showed a thrombosis in 1 of 2 right peroneal veins; she was asymptomatic with this. A decision was made initially not to pursue anticoagulation and pursue serial ultrasounds. Given the HoTN, CTA performed to exclude occult PEs. CTA showing subsegemtal PE RLL. Eliquis started (4) Thrombosis of right peroneal vein: Code(s): I82.451 - Acute embolism and thrombosis of right peroneal vein Status: Acute Assessment and Plan: As above (5) Weakness: Code(s): R53.1 - Weakness Status: Acute Assessment and Plan: Weakness likely due to combination of debility, dehydration, electrolyte abnormalities and possibly from taking the incorrect medications. This has improved. Continue PT and OT. (6) Dehydration: Code(s): E86.0 - Dehydration Status: Acute Assessment and Plan: Patient with dehydration. Resolved. IV fluids resumed yesterday for HoTN but stopped again this morning. Slightly more edematous as well. Consider Lasix if BP could tolerate. (7) Hypokalemia: Code(s): E87.6 - Hypokalemia Status: Acute Assessment and Plan: Patient with hypokalemia. Potassium normal today. Cortisol okay. Follow (8) Dementia: Code(s): F03.90 - Unspecified dementia without behavioral disturbance Status: Acute Assessment and Plan: Patient with known dementia. She is alert but confused. She is not on medications for dementia. She is on Cymbalta for depression. Patient lives in assisted living facility. Continue to follow. (9) Hyponatremia: Code(s): E87.1 - Hypo-osmolality and hyponatremia Status: Acute Assessment and Plan: Sodium was 129 on admission. This has improved to 134. Continue to monitor. Probably related to the hydrochlorothiazide. (10) Chronic back pain: Code(s): M54.9 - Dorsalgia, unspecified; G89.29 - Other chronic pain Status: Acute Assessment and Plan: Stable and chronic. Continue gabapentin and duloxetine. Hydrocodone available as needed. Continue narcotic for now but may need to stop if related to her HoTN. 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 as needed which has been continued. As above (12) Urinary tract infection: Code(s): N39.0 - Urinary tract infection, site not specified Status: Acute Assessment and Plan: UA noted. Urine culture negative. UTI ruled out Subjective Date/time seen: 08/25/22 14:54 Interval history: 82yo female with dementia and HTN here for
[2022-08-25] MEDS: METOPROLOL TARTRATE INJ 5 MG/5 ML VIAL IV PUSH (15:12)
[2022-08-25] MEDS: METOPROLOL TARTRATE 25 MG TABLET PO (16:15)
[2022-08-25] MEDS: METOPROLOL TARTRATE INJ 5 MG/5 ML VIAL (16:18)
[2022-08-25] MEDS: METOPROLOL TARTRATE 12.5 MG TABLET PO (19:48)
[2022-08-26] VITALS (11 sets, daily range): BP systolic 90–134; BP diastolic 47–72; PULSE 56–96; RESP 14–16; TEMP 36.2–36.4; O2SAT 81–100
[2022-08-26 07:01] LABS: Anion Gap 7 mmol/L (8-16); Blood Urea Nitrogen 13 mg/dL (7-17); Calcium 8.8 mg/dL (8.4-10.2); Carbon Dioxide 30 mmol/L (22-30); Chloride 98 mmol/L (98-107); Estimated CRCL calculation 47 ml/min; Estimated Glomerular Filt Rate > 60; Glucose 86 mg/dL (65-110); Potassium 3.8 mmol/L (3.4-5.0); Sodium 135 mmol/L (137-145)
[2022-08-26] MEDS: DULoxetine HCL 30 MG CAPSULE.DR PO (08:56)
[2022-08-26] MEDS: METOPROLOL TARTRATE 12.5 MG TABLET PO (08:56)
[2022-08-26] MEDS: GABAPENTIN 300 MG CAPSULE 600 MG PO (08:56)
[2022-08-26] MEDS: SACUBITRIL/VALSARTAN 12-13 MG TABLET 1 TAB PO (08:56)
[2022-08-26] MEDS: POTASSIUM CHLORIDE 10 MEQ TABLET.ER PO (08:57)
[2022-08-26] MEDS: ASPIRIN 81 MG ENTERIC TABLET PO (08:57)
[2022-08-26] MEDS: PANTOPRAZOLE 40 MG TABLET PO (08:57)
[2022-08-26] MEDS: APIXABAN 5 MG TABLET 10 MG PO (08:57)
[2022-08-26] MEDS: HYDROcodone/acetaminophen (*CRX) 7.5-325 MG TABLET 1 TAB PO (09:53)
--- NOTE | 2022-08-26 11:20 | PCNFU ---
Nutrition Follow-Up Complete: Suboptimal po intake related to appetite as evidenced by charted intake and pt report. Goal:PO intake 50% or greater for meals and supplements - Not meeting goals, patient has poor appetite and not feeling good Pt current nutrition is Regular heart healthy. Nutrition recommendation: Continue current care plan and supplements: Nutritional ice cream BID and Ensure compact BID for additional 220 kcals and 9 gram protein. Last recorded weight is 57.8 kg. Bowel Motility: last BM 08/24/22 Labs Reviewed: Na 135, Alb 4.1 Meds Noted:Lovenox, protonix Skin:WNL Additional Notes: Pt prefers chocolate Ensure. Says she is a small eater normally. Monitor intake, wt, labs. Follow up in 5 days.
--- NOTE | 2022-08-26 15:34 | PM.DS ---
DS: Admitting Diagnosis Discharge Date 08/26/22 Admitting Diagnosis Confusion after receiving the wrong medications DS: Discharge Diagnosis Discharge Diagnosis (1) Atrial fibrillation with rapid ventricular response: Code(s): I48.91 - Unspecified atrial fibrillation Status: Acute (2) Hypotension: Code(s): I95.9 - Hypotension, unspecified Status: Acute (3) Pulmonary emboli: Code(s): I26.99 - Other pulmonary embolism without acute cor pulmonale Status: Acute (4) Thrombosis of right peroneal vein: Code(s): I82.451 - Acute embolism and thrombosis of right peroneal vein Status: Acute (5) Weakness: Code(s): R53.1 - Weakness Status: Acute (6) Dehydration: Code(s): E86.0 - Dehydration Status: Acute (7) Hypokalemia: Code(s): E87.6 - Hypokalemia Status: Acute (8) Dementia: Code(s): F03.90 - Unspecified dementia without behavioral disturbance Status: Acute (9) Hyponatremia: Code(s): E87.1 - Hypo-osmolality and hyponatremia Status: Acute (10) Chronic back pain: Code(s): M54.9 - Dorsalgia, unspecified; G89.29 - Other chronic pain Status: Acute (11) prison prescription opiate use: Code(s): 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 Please see H&P for details. Hospital Course: patient presented to emergency room for confusion after receiving the wrong medications. White count was slightly elevated 11 K. Sodium was 129 with potassium 2.5. Urinalysis was suspicious for UTI but urine culture was negative. COVID was negative. Potassium was replaced. Her hydrochlorothiazide was stopped and her sodium improved to 135. LFTs within normal limits. TSH and cortisol levels were normal. Her D-dimer was positive. CT of the head showed areas of prior infarct but no acute findings. Chest x-ray was clear. Due to the elevated D-dimer, she received lower extremity venous Doppler which showed right calf below the knee DVT. She developed an incident of hypotension. He was also noted that she had intermittent tachycardia. This prompted a CTA of the chest which showed single pulmonary emboli in the subsegmental branch of the right lower lobe. She also had age-indeterminate L1 burst fracture new since April. She was started Eliquis. EKG on admission showed normal sinus rhythm with PVCs. She had borderline ST T wave changes in the high lateral leads. During hospital course while on telemetry, she was noted to have atrial fibrillation with RVR. she was given IV metoprolol and started on oral metoprolol. Tolerated this well. She converted back to normal sinus rhythm. Echocardiogram showed EF of 30-35% and [id number] MR. She was started on low-dose Entresto. Check clinical improvement. She overall did well. She was able be discharged on 08/26/2022. Status at Discharge Cognitive/behavioral status at discharge: Stable Time Spent with Patient Time attestation: Total time spent providing and/or coordinating discharge services: 34 minutes Time spent: Greater than 30 minutes Exam Narrative: AF 97.2 106/47 63 16 96% ra Gen - NARD Chest - CTA bilaterally, nml RR CV - RRR S1/S2 Abd - Soft, NT/ND, Positive BS Ext - trace pedal edema Neuro - Alert but confused Psych - Nml mood and affect Skin - Warm and dry DS: Data Data Completed and Pending Labs on day of discharge: Labs from last 24 hours 08/26/22 08/26/22 15:15 06:26 Sodium 135 L Potassium 3.8 Chloride 98 Carbon Dioxide 30 Anion Gap 7 L BUN 13 Creatinine 0.70 Estim Creat Clear Calc 47 Estimated GFR > 60 Glucose 86 Calcium 8.8 SARS-CoV-2 IgG/IgM Ag?Rapid Pending Preliminary micro results at discharge 08/22
[2022-08-26 15:41] LABS: EDCOVIDSCREEN Positive (Negative)
[2022-08-26 16:41] LABS: SARS-CoV-2 RNA PCR Negative
== END 2022-08-26 17:05 | DRG 917 ==
LOC: ANHED 15:17 → ANH3MEDSUR 16:10
PROVIDERS: Emergency Medicine; Physician Assistant; Admitting Provider Chiropractor; Emergency Provider Emergency Medicine; PCP Family Medicine; Visit Provider Internal Medicine
DX: T50.991A Poisoning by other drugs, medicaments and biological substances, accidental (unintentional), initial encounter (principal); I26.99 Other pulmonary embolism without acute cor pulmonale; S32.011A Stable burst fracture of first lumbar vertebra, initial encounter for closed fracture; I82.451 Acute embolism and thrombosis of right peroneal vein; E87.1 Hypo-osmolality and hyponatremia; I42.9 Cardiomyopathy, unspecified; I48.91 Unspecified atrial fibrillation; I95.9 Hypotension, unspecified; R53.1 Weakness; E86.0 Dehydration; E87.6 Hypokalemia; R41.0 Disorientation, unspecified; I12.9 Hypertensive chronic kidney disease with stage 1 through stage 4 chronic kidney disease, or unspecified chronic kidney disease; N18.9 Chronic kidney disease, unspecified; I34.0 Nonrheumatic mitral (valve) insufficiency; F03.90 Unspecified dementia, unspecified severity, without behavioral disturbance, psychotic disturbance, mood disturbance, and anxiety; G89.29 Other chronic pain; M47.9 Spondylosis, unspecified; M81.0 Age-related osteoporosis without current pathological fracture; F32.A Depression, unspecified; Z20.822 Contact with and (suspected) exposure to COVID-19; Z86.73 Personal history of transient ischemic attack (TIA), and cerebral infarction without residual deficits; Z23 Encounter for immunization; Z87.891 Personal history of nicotine dependence
CPT/HCPCS: 36415; 70450; 71045; 71275; 80048; 80053; 80069; 81001; 82533; 83735; 84443; 85025; 85027; 85380; 85610; 85730; 87040; 87086; 87088; 87426; 90471; 90694; 93005; 93306; 93970; 96365; 96368; 97110; 97116; 97161; 97165; 97530; 97535; 99285; A9270; C9803; G0008; J0696; J1650; J3480; J7030; J7040; Q9967; U0003; U0005

== ENCOUNTER 2022-10-19 14:29 | Inpatient (IN) | payer MEDICARE, BC, SELFPAY ==
[2022-10-19] VITALS (8 sets, daily range): BP systolic 150–180; BP diastolic 63–75; PULSE 61–94; RESP 12–19; TEMP 36.3–36.6; O2SAT 97–99; BMI 22.8
--- NOTE | ~2022-10-19 | XR_ITS ---
XR hip LT 2V w AP pelvis 10/19/2022 15:52 Indication: Left hip pain after fall Procedure: 3 views left hip including AP pelvis Comparison: 04/28/2022 Findings: There is an acute displaced left femoral intertrochanteric fracture with varus angulation. There is a possible nondisplaced fracture of the left pubic symphysis. There is lower lumbar spondylo sis. Impression: 1: Displaced, angulated left femoral intertrochanteric fracture. 2: Possible nondisplaced fracture of the left pubic symphysis. Reviewed, dictated and finalized at location B. ONNEL MONITOR Impression: 1: Displaced, angulated left femoral intertrochanteric fracture. 2: Possible nondisplaced fracture of the left pubic symphysis.
--- NOTE | ~2022-10-19 | US_ITS ---
US venous doppler [facility] DATE: 10/19/2022 23:10 INDICATION: Edema of the lower extremities TECHNIQUE: Real-time and color flow imaging and Doppler analysis of the veins of the lower extremitie s COMPARISON: 08/22/2022 venous duplex examination of the lower extremities FINDINGS: There is spontaneous and phasic flow and normal augmentation and color flow signal and norm al compression of the deep veins of both lower extremities. IMPRESSION: No evidence of deep venous thrombosis of the lower extremities Reviewed, dictated and finalized at Location A. Reviewed, dictated and finalized at location A. KEN CLEANER
--- NOTE | ~2022-10-19 | XR_ITS ---
EXAMINATION: XR surgery orthopedic DATE: 10/21/2022 14:50 INDICATION: Intertrochanteric nailing of a left hip fracture TECHNIQUE: A fluoroscopic images of the left hip and femur were obtained during procedure performed michael Mccollum. Radiologist was not present for the imaging or procedure. The amount of fluoroscopy ti me used during this procedure was 0.7 minutes. COMPARISON: 10/19/2022 FINDINGS: Open reduction internal fixation of an intratrochanteric fracture of the proximal left femur with ant egrade intramedullary estrella and femoral neck dynamic compression screw fixation. The alignment appears near-anatomic. Mild osteoarthritis at the left hip. No new fractures identified. IMPRESSION: 1. Near-anatomic alignment post open reduction internal fixation of an intratrochanteric fracture of the proximal left femur. Reviewed, dictated and finalized at location A. E SIDEWALL TIRE BUFFER IMPRESSION: 1. Near-anatomic alignment post open reduction internal fixation of an intratro chanteric fracture of the proximal left femur.
--- NOTE | ~2022-10-19 | CT_ITS ---
EXAMINATION: CTA chest PE protocol DATE: 10/20/2022 11:28 INDICATION: Calf deep venous thrombosis. Pulmonary embolus. TECHNIQUE: Computed tomography angiography (CTA) of the chest was performed with 100 mL Omnipaque-350 intravenous contrast timed to evaluate the pulmonary arteries. Coronal maximum intensity projection 3D-reconstructions were created by the technologist. Automated exposure control and iterative reconst ruction technique were employed. Exam dose: 176.99 mGy-cm total exam DLP. COMPARISON: 10/19/2022 AP chest 08/24/2022 CT pulmonary scan (single pulmonary embolism in subsegmental pulmonary artery of right lowe r lobe was reported) FINDINGS: Examination of the peripheral pulmonary arteries is limited by motion. Since 08/24/2022 there is resolution of previously reported embolus in a right lower lobe pulmonary ar el and also resolution of lingular pulmonary embolism since 08/24/2022. No main or lobar or segmental pulmonary artery embolism is currently evident. There is minimal bilateral lower lobe dependent atelectasis. Bilateral apical scarring, right greater than left. Cardiomegaly. Atrial septal closure device. Coronary artery calcification. No thoracic aortic aneurys m. No hilar or mediastinal mass lesion or lymphadenopathy. Large hiatal hernia. Status post cholecystectomy. Right renal severe atrophy. Prominent burst fracture deformities of T11 and T12, status post vertebroplasty at T11. IMPRESSION: Interval resolution of the lingular and right lower lobe Limited pulmonary embolism sinc e 08/24/2022 Reviewed, dictated and finalized at Location A. Reviewed, dictated and finalized at location A. ET ASSISTANT IMPRESSION: Interval resolution of the lingular and right lower lobe Limited p ulmonary embolism since 08/24/2022
--- NOTE | ~2022-10-19 | CT_ITS ---
EXAMINATION: CT brain wo con DATE: 10/19/2022 15:43 INDICATION: fall . TECHNIQUE: Computed tomography (CT) of the head was performed without intravenous contrast. The mA wa s adjusted according to patient size. Iterative reconstruction technique was employed. The dose-lengt h product was 605.33 mGy-cm. COMPARISON: 08/22/2022 FINDINGS: No acute intracranial hemorrhage or extra-axial fluid collection. No hydrocephalus, mass, or herniation. No acute ischemic infarct. Unremarkable dural venous sinus attenuation. No acute osseous abnormality. Trace right mastoid fluid mucosal thickening and air-fluid levels in the frontal, ethmoid, sphenoid, and left maxillary sinuses. Moderate atrophy and chronic white matter change. 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 Ath erosclerotic intracranial calcification. IMPRESSION: No acute intracranial process. Paranasal sinuses findings may reflect acute sinusitis in the appropri ate clinical context. Reviewed, dictated and finalized at location K. INSPECTOR FEDERAL IMPRESSION: No acute intracranial process. Paranasal sinuses findings may reflect acute sin usitis in the appropriate clinical context.
--- NOTE | ~2022-10-19 | CT_ITS ---
EXAMINATION: CT cervical spine wo con DATE: 10/19/2022 15:43 INDICATION: fall TECHNIQUE: Computed tomography (CT) of the cervical spine was performed without intravenous contrast. Automated exposure control and iterative reconstruction technique were employed. The dose-length pro duct was 157.57 mGy-cm. COMPARISON: None FINDINGS: Vertebral Body Alignment: Intact. Trace retrolisthesis at C5-6, likely on a degenerative basis. Craniocervical and atlantoaxial alignment: Moderate degenerative change. Alignment intact. Osseous structures/fracture: No evidence of a lytic or blastic process in the visualized spine. No e vidence of acute fracture. Cervical soft tissues: The paraspinal soft tissues planes are maintained. Biapical pleural scarring. Bilateral carotid bifurcation, aortic arch, and proximal great vessel calcification. Degenerative changes: Multilevel degenerative disc disease, moderate at C5-6 where there is also mode rate bilateral neural foraminal narrowing and mild central canal narrowing. IMPRESSION: No acute fracture or traumatic malalignment in the cervical spine. Reviewed, dictated and finalized at location K. R SYSTEMS ENGINEER
--- NOTE | ~2022-10-19 | XR_ITS ---
EXAMINATION: XR chest 1V 10/19/2022 15:52 INDICATION: Ground-level fall. Left hip pain. PROCEDURE: AP view of the chest COMPARISON: 08/22/2022 FINDINGS: The lungs are clear. The cardiomediastinal silhouette is within normal limits. There are no pleural effusions. There is no pneumothorax suspected. There is atherosclerosis of the aorta. Th ere are cholecystectomy clips in the right upper abdomen. There is apical pleural thickening/scarring . Vertebroplasty changes noted in the lower thoracic spine. IMPRESSION: 1: NO ACUTE CARDIOPULMONARY DISEASE. Reviewed, dictated and finalized at location B. ECTOR EYEGLASS FRAMES
--- NOTE | 2022-10-19 15:13 | ED.LOWEXIN ---
HPI - Extremity Injury (Lower) General Chief Complaint: Extremity Injury, Lower Stated Complaint: hip injury Time Seen by Provider: 10/19/22 15:13 History of Present Illness HPI Narrative: Patient is an 82-year-old female with a history of A. fib on Eliquis, hypertension, dementia presenting after a fall. Patient lives in a nursing facility and was found on the floor after calling out for help. Sounds like she was ambulating in her room without her walker. She states that she remembers falling back and striking her head. Developed severe left hip pain after falling. For EMS, her left leg was shortened and externally rotated. Currently, patient states that she only has pain in her hip if she moves. She denies headache, numbness or weakness, chest pain, shortness of breath, abdominal pain, vomiting, diarrhea. Related Data Home Medications Medication Instructions Recorded Confirmed aspirin 81 mg tablet 81 mg PO DAILY 05/09/22 10/19/22 duloxetine 30 mg capsule,delayed 30 mg PO DAILY 05/09/22 10/19/22 release gabapentin 600 mg tablet 600 mg PO BID 05/09/22 10/19/22 omeprazole 40 mg capsule,delayed 40 mg PO DAILY 05/09/22 10/19/22 release hydrocodone-acetaminophen 5 - 325 mg BYMOUTH TID PRN Pain 10/19/22 10/19/22 (Scale Score 7-10) mirabegron 25 mg tablet,extended 25 mg PO DAILY 10/19/22 10/19/22 release 24 hr (Myrbetriq) Allergies Allergy/AdvReac Type Severity Reaction Status Date / Time No Known Allergies Allergy Unknown Verified 10/19/22 18:11 Review of Systems Review of Systems: All systems reviewed & are unremarkable except as noted in HPI and below PMFSH Past Medical History Medical History (Updated 10/21/22 @ 12:14 by Tanya Wilkinson MD) Atrial fibrillation with rapid ventricular response (07/2022) Chronic back pain Chronic renal failure Dementia Essential hypertension Heart failure with reduced ejection fraction Echo in July 2022 showed moderately reduced LV systolic function with an EF of 30 to 35%. assisted prescription opiate use Osteoporosis Pulmonary emboli (07/2022) Spinal arthritis Thrombosis of right peroneal vein (07/2022) Transient ischemic attack Surgical History Surgical History History of spinal surgery Family History Family History Father Acute myocardial infarction Sibling Family history of pancreatic cancer Family history of type 2 diabetes mellitus Social History Social History Social History: Surrogate medical decision maker: Keeley Yoon, daughter. Code status: Full code. Smoking packs per day: 0.5 Smoking cigarettes per day: 10.0 Years smoked: 40 Smoking pack-years: 20.00 Smoking status: Former smoker Smoking end date: 11/26/76 Alcohol intake: former Alcohol use details: Rare alcohol use. Substance use: never Lack of Transportation: No Lack of Food: Never True Current Housing: I Have Housing Concerned About Future Housing: No Difficulty Paying Gas/Electric Bills: No Difficulty Paying for Meds: No Currently Unemployed: No Education: High School Diploma/GED Difficulty w/ Childcare or Family Care: No Additional living arrangements comments: Assisted living at [facility] care. Spiritual care concerns: No Exam Narrative: GENERAL: Well-appearing, well-nourished, and in no acute distress. HEAD: Normocephalic, small ecchymosis lateral to right eye EYES: PERRLA and EOMI. ENT: Nares clear, no rhinorrhea or epistaxis. Mucous membranes moist. NECK: Supple. CHEST: Clear to auscultation. No respiratory distress. HEART: Regular rate and rhythm. No murmur heard. Normal peripheral pulses. ABDOMEN: Soft, nontender, nondistended, normal active bowel sounds. EXTREMITIES: Left leg is shortened and externally rotated, neurovascularly intact S
--- NOTE | 2022-10-19 15:28 | ECG_ITS ---
Measurements Intervals [place] Rate: 61 P: 58 [place]: 155 QRS: 47 QRSD: 88 T: 63 QT: 415 QTc: 420 Interpretive Statements SINUS RHYTHM NORMAL ECG COMPARED TO ECG 08/25/2022 15:03:09 SINUS RHYTHM NOW PRESENT Electronically Signed On 10-20-2022 8:16:10 ENDLESS BED DRUM SANDER by [place] Nava D.O.
[2022-10-19] MEDS: MORPHINE SULFATE (*CRX) 4 MG/ML INJ IV PUSH ×2 (15:53→20:06)
[2022-10-19 16:08] LABS: Basophils Percent Auto 0.1 % (0.2-1.2); Eosinophils Absolute Auto 0.2 K/mm3 (0-0.3); Eosinophils Percent Auto 2.5 % (0-4.4); Hematocrit 38.1 % (37.0-47.0); Hemoglobin 11.5 g/dL (12.0-15.0); Immature Granulocyte Absolute 0.07 K/mm3 (0.00-0.031); Immature Granulocyte Percent A 0.9 % (0-0.5); Lymphocytes Absolute Auto 1.17 K/mm3 (0.9-3.2); Lymphocytes Percent Auto 15.5 % (18.3-44.2); Mean Corpuscular HGB Conc 30.2 g/dl (32-36); Mean Corpuscular Hemoglobin 28.3 pg (26-34); Mean Corpuscular Volume 93.8 fl (80-100); Mean Platelet Volume 10.3 fl (7.4-10.4); Monocytes Absolute Auto 0.6 K/mm3 (0.1-0.6); Monocytes Percent Auto 8.2 % (2.6-8.5); Neutrophils Absolute Auto 5.5 K/mm3 (1.3-6.7); Neutrophils Percent Auto 72.8 % (45.5-73.1); Platelet Count Result 265 k/mm3 (150-375); Red Blood Count 4.06 M/mm3 (4.2-5.4); Red Cell Distribution Width 13.6 % (11.5-14.5); White Blood Count 7.6 K/mm3 (4.5-10.0)
[2022-10-19 16:23] LABS: INR 1.5; Partial Thromboplastin Time 31.9 SECONDS (22.3-36.8); Prothrombin Time 17.2 Seconds (11.1-14.7)
[2022-10-19 16:24] LABS: Alanine Aminotransferase 21 U/L (6-35); Albumin Level 3.4 g/dL (3.5-5.1); Alkaline Phosphatase 81 U/L (38-126); Anion Gap 8 mmol/L (8-16); Aspartate Amino Transferase 35 U/L (14-36); Bilirubin,Total 0.4 mg/dL (0.2-1.3); Blood Urea Nitrogen 12 mg/dL (7-17); Calcium 8.4 mg/dL (8.4-10.2); Carbon Dioxide 29 mmol/L (22-30); Chloride 104 mmol/L (98-107); Estimated CRCL calculation 36 ml/min; Estimated Glomerular Filt Rate > 60; Glucose 104 mg/dL (65-110); Potassium 3.5 mmol/L (3.4-5.0); Sodium 141 mmol/L (137-145)
[2022-10-19 16:36] LABS: Troponin I < 0.012 ng/mL (0.000-0.034)
--- NOTE | 2022-10-19 16:45 | PM.IMHP ---
H&P: HPI History of Present Illness Date/Time: 10/19/22 16:45 Chief Complaint: Left hip pain after fall. Narrative: This is a pleasant 82-year-old female with recent diagnosis of calf DVT and pulmonary embolism on anticoagulation, dementia, hypertension, and heart failure with reduced ejection fraction and a recent EF of 30 to 35%, who presented to the ED for evaluation of left hip pain after a fall. last weekend she moved from [facility] in [place] to assisted living at [facility] due to nighttime wondering. The 1st night that she was there she fell and hit the left side of her head on the floor where she has a healing bruise at this time. Today she had another fall which was unwitnessed and she was reportedly in her [facility] apartment when the fall occurred. Due to the patient short-term memory loss she was not able to provide a good history as to how she fell but there are questions about whether not she was using her walker. The only complaint she had after with the fall was that of severe left hip pain and she was found to have a displaced, angulated left femoral inter trochanteric fracture and she is being admitted in this setting. At the time my evaluation she is doing fine as long as she is not moving but she reports severe, sharp pain in the left anterior hip and groin with any movement. She does not think she sustained any other injuries in the fall. She is not certain if she hit her head with the fall today. She does not believe that she had a syncopal episode and assumes that she lost her balance causing the fall. Review of Systems Review of Systems: Twelve systems were reviewed. She had COVID to weeks ago and her symptoms have resolved. She seemed to do well in that regard. No fever, chills, or sweats. She denies headache and neck ache. No chest pain or shortness of breath. She denies orthopnea and paroxysmal nocturnal dyspnea. She always has a little lower leg edema which is not new. She denies abdominal pain, nausea, and vomiting. No dysuria or diarrhea that she can remember. Except as documented, all other systems were reviewed and are negative. [facility] Past Medical History Medical History (Updated 10/19/22 @ 22:08 by Nannette Grimaldo PA-C) Atrial fibrillation with rapid ventricular response (07/2022) Chronic back pain Chronic renal failure Dementia Essential hypertension Heart failure with reduced ejection fraction Echo in July 2022 showed moderately reduced LV systolic function with an EF of 30 to 35%. 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 Code status: Full code. Smoking packs per day: 0.5 Smoking cigarettes per day: 10.0 Years smoked: 40 Smoking pack-years: 20.00 Smoking status: Former smoker Smoking end date: 11/26/76 Alcohol intake: former Alcohol use details: Rare alcohol use. Substance use: never Lack of Transportation: No Lack of Food: Never True Current Housing: I Have Housing Concerned About Future Housing: No Difficulty Paying Gas/Electric Bills: No Difficulty Paying for Meds: No Currently Unemployed: No Education: High School Diploma/GED Difficulty w/ Childcare or Family Care: No Additional living arrangements comments: Assisted living at [facility]. Spiritual care concerns: No Meds Home Medications and Allergies H
--- NOTE | 2022-10-19 18:10 | ADMGEN ---
This patient, Rhea Dimas, was admitted to Medical Room 246-01. Patient/family oriented to hospital policies and general routines including ID bracelet, bed and alarms, visiting hours, pain management, procedures, bathroom and other care routines, personal items, smoking policy, room service/diet, and visiting hours. Information on how to activate the Rapid Response Team has been discussed. Patient/Family are encouraged to report perceived risks to care and to ask questions if they do not understand what they are told or what they should do.
[2022-10-19] MEDS: SACUBITRIL/VALSARTAN 12-13 MG TABLET 1 TAB PO (23:38)
[2022-10-19] MEDS: GABAPENTIN 300 MG CAPSULE 600 MG PO (23:39)
[2022-10-20 04:57] LABS: Hematocrit 37.1 % (37.0-47.0); Hemoglobin 11.3 g/dL (12.0-15.0); Mean Corpuscular HGB Conc 30.5 g/dl (32-36); Mean Corpuscular Hemoglobin 28.3 pg (26-34); Mean Corpuscular Volume 92.8 fl (80-100); Mean Platelet Volume 10.3 fl (7.4-10.4); Platelet Count Result 261 k/mm3 (150-375); Red Cell Distribution Width 13.5 % (11.5-14.5); White Blood Count 6.9 K/mm3 (4.5-10.0)
[2022-10-20 05:11] LABS: Alanine Aminotransferase 38 U/L (6-35); Albumin Level 3.4 g/dL (3.5-5.1); Alkaline Phosphatase 97 U/L (38-126); Anion Gap 8 mmol/L (8-16); Aspartate Amino Transferase 64 U/L (14-36); Bilirubin,Total 0.8 mg/dL (0.2-1.3); Blood Urea Nitrogen 10 mg/dL (7-17); Calcium 8.3 mg/dL (8.4-10.2); Carbon Dioxide 28 mmol/L (22-30); Chloride 102 mmol/L (98-107); Estimated CRCL calculation 36 ml/min; Estimated Glomerular Filt Rate > 60; Glucose 98 mg/dL (65-110); Potassium 3.4 mmol/L (3.4-5.0); Sodium 138 mmol/L (137-145)
[2022-10-20 05:34] VITALS: BP 172/71; PULSE 82; RESP 20; TEMP 36.7; O2SAT 97
--- NOTE | 2022-10-20 08:07 | PCOTNOTE ---
Pt. will require ortho consult and plan of care prior to being seen by therapy services
[2022-10-20 08:17] VITALS: BP 174/69; PULSE 85; RESP 16; O2SAT 98
[2022-10-20 08:23] VITALS: PULSE 76
[2022-10-20] MEDS: ASPIRIN 81 MG ENTERIC TABLET PO (08:23)
[2022-10-20] MEDS: SACUBITRIL/VALSARTAN 12-13 MG TABLET 1 TAB PO ×2 (08:23→20:48)
[2022-10-20] MEDS: METOPROLOL SUCCINATE EXT REL 12.5 MG TABCR PO (08:23)
[2022-10-20] MEDS: GABAPENTIN 300 MG CAPSULE 600 MG PO ×2 (08:23→20:48)
[2022-10-20] MEDS: DOCUSATE SODIUM 100 MG CAPSULE PO ×2 (08:23→16:36)
[2022-10-20] MEDS: MIRABEGRON 25 MG ER TABLET PO (08:23)
[2022-10-20] MEDS: DULoxetine HCL 30 MG CAPSULE.DR PO (08:23)
[2022-10-20] MEDS: polyethylene glycoL 3350 17 GM POWD.PACK PO (08:23)
[2022-10-20] MEDS: PANTOPRAZOLE 40 MG TABLET PO (08:24)
[2022-10-20] MEDS: HYDROcodone/acetaminophen (*CRX) 5-325 MG TABLET 1 TAB PO ×2 (08:24→15:33)
--- NOTE | 2022-10-20 10:39 | PM.CNOR ---
Assessment and Plan Assessment and plan (1) Intertrochanteric fracture of left femur: Code(s): S72.142A - Displaced intertrochanteric fracture of left femur, initial encounter for closed fracture Status: Acute Assessment and Plan: 82-year-old woman memory care resident with left hip intertrochanteric fracture. Oriented to self. Previous ambulator. Discussed nonoperative and operative treatment options with the patient. Risks and benefits of each as well as alternatives were reviewed. All of the patient's questions were answered. The risks of surgery reviewed including but not limited to: Neurovascular damage, wound complication, infection, blood clot, pulmonary embolus, stroke, myocardial infarction, and anesthetic risks up to and including . Continued pain and possible dysfunction were explained. Specific risks of the procedure including later recurrence of deformity. No guarantees were offered. If hardware used, discussed risk of failure/ breakage and possible need for removal. If complications occur, the patient understands the need for further treatment, possible further surgery. Patient verbalizes understanding and wishes to proceed. PLAN: Left hip trochanteric nail Patient on chronic anticoagulation. We will proceed with surge when medically stable. History of Present Illness HPI Consult date: 10/20/22 Requesting physician: Tanya Wilkinson MD Chief complaint: hip fracture Narrative: 82-year-old woman Memory Care senior care resident fell onto the left side. Sustained left hip fracture. Admitted for further care. Patient oriented to self. Complains of left hip pain with movement. Review of Systems Constitutional: Constitutional: Denies fever(s) Eyes: Eyes: Denies blurry vision ENT: Reports Normal hearing present Cardiovascular: Cardiovascular: Denies chest pain and Denies dyspnea Respiratory: Respiratory: Denies dyspnea and Denies wheezing Gastrointestinal: Gastrointestinal: Denies abdominal pain Genitourinary: Genitourinary: Denies urinary urgency Musculoskeletal: Musculoskeletal: Reports as per HPI and Denies numbness Integumentary/Breasts: Skin/Breast: Denies changing lesions and Denies sores Neurologic: Reports Normal hearing present, Denies behavioral changes, Denies confusion, Denies numbness and Denies convulsions Psychiatric: Psychiatric: Denies behavioral changes, Denies confusion and Denies hallucinations Endocrine: Endocrine: Denies heat intolerance Hematologic/Lymphatic: Hematologic/Lymphatic: Denies easy bleeding Allergic/Immunologic: Allergic/Immunologic: Denies wheezing PMFSH Past Medical History Medical History Atrial fibrillation with rapid ventricular response (07/2022) Chronic back pain Chronic renal failure Dementia Essential hypertension Heart failure with reduced ejection fraction Echo in July 2022 showed moderately reduced LV systolic function with an EF of 30 to 35%. 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 Code status: Full code. Smoking packs per day: 0.5 Smoking cigarettes per day: 10.0 Years smoked: 40 Smoking pack-years: 20.00 Smoking status: Former smoker Smoking end date: 11/26/76 Alcohol intake: former Alcohol use details: Rare alcohol use. Subst
--- NOTE | 2022-10-20 10:45 | P.PNIM_ITS ---
Progress Note: A&P Assessment and Plan (1) Unwitnessed fall: Code(s): R29.6 - Repeated falls Status: Acute Assessment and Plan: * Multiple falls noted in the last week * Presented to the ED after a fall * Xray shows displaced, angulated left femoral intertrochanteric fracture, possible nondisplaced fracture of the left pubic symphysis * Head CT does not show any acute intracranial process, possible sinusitis * Cervical spin does not show any acute fractures * Fall precautions * PT/OT when appropiate (2) Intertrochanteric fracture of left femur: Code(s): S72.142A - Displaced intertrochanteric fracture of left femur, initial encounter for closed fracture Status: Acute Assessment and Plan: * Presented to the ED after a fall * Xray shows displaced, angulated left femoral intertrochanteric fracture, possible nondisplaced fracture of the left pubic symphysis * Ortho consulted thank you for your help * Is on [facility], which is held for a possible surgical intervention * Pain Medication: Morphine 2mg IV Q4H PRN, Tylenol 1,000mg Q6H PRN * Anti-emetics: Zofran 4mg Q4H PRN * Ortho to manage post-op care * PT/OT when appropriate * DVT prophylaxis: SCD, then ortho to decide (3) Closed fracture of left side of symphysis pubis: Code(s): S32.592A - Other specified fracture of left pubis, initial encounter for closed fracture Status: Acute Assessment and Plan: * Nonsurgical, supportive care * PT/OT when appropriate * Most likely will need a TLSO brace * Pain medications on board (4) Heart failure with reduced ejection fraction: Code(s): I50.20 - Unspecified systolic (congestive) heart failure Status: Acute Assessment and Plan: * Echo noted an EF of 30-35%, with diastolic dysfunction * Appears to be a chronic combined systolic and diastolic heart failure without exacerbation * Continue Entresto and beta-malcolm. * Trend urine output * Daily weights (5) Pulmonary emboli: Onset Date: 07/2022 Code(s): I26.99 - Other pulmonary embolism without acute cor pulmonale Status: Chronic Assessment and Plan: * Single pulmonary embolism mid subsegmental pulmonary artery of the right lower lobe noted on CTA of the chest on 08/24/2022. * [id number] DVT noted at that time as well * Risk over benefit of anticoagulation should be evaluated Given her repeated falls * Venous doppler no acute DVT noted * CTA ordered * Concern if unresolved will need to start heparin until surgery * Wells score 1 for DVT, 1.5 for PE which are mild to moderate risk * Has-Bled 4 (6) Thrombosis of right peroneal vein: Onset Date: 07/2022 Code(s): I82.451 - Acute embolism and thrombosis of right peroneal vein Status: Chronic Assessment and Plan: * As above. (7) Chronic anticoagulation: Code(s): Z79.01 - assisted (current) use of anticoagulants Status: Acute Assessment and Plan: * Plan is as above. * On eliquis * Currently on hold for possible surgical intervention Time Spent With Patient Time with patient: 25 - 35 minutes Subjective Date/time seen: 10/20/22 1045 Interval history: 10/20/22 104 Patient was lying in bed. Patient seems to be doing okay at this time. Daughter was in
--- NOTE | 2022-10-20 10:45 | PM.IMPN ---
Progress Note: A&P Assessment and Plan (1) Unwitnessed fall: Code(s): R29.6 - Repeated falls Status: Acute Assessment and Plan: Multiple falls noted in the last week Presented to the ED after a fall Xray shows displaced, angulated left femoral intertrochanteric fracture, possible nondisplaced fracture of the left pubic symphysis Head CT does not show any acute intracranial process, possible sinusitis Cervical spin does not show any acute fractures Fall precautions PT/OT when appropiate (2) Intertrochanteric fracture of left femur: Code(s): S72.142A - Displaced intertrochanteric fracture of left femur, initial encounter for closed fracture Status: Acute Assessment and Plan: Presented to the ED after a fall Xray shows displaced, angulated left femoral intertrochanteric fracture, possible nondisplaced fracture of the left pubic symphysis Ortho consulted thank you for your help Is on Tereza, which is held for a possible surgical intervention Pain Medication: Morphine 2mg IV Q4H PRN, Tylenol 1,000mg Q6H PRN Anti-emetics: Zofran 4mg Q4H PRN Ortho to manage post-op care PT/OT when appropriate DVT prophylaxis: SCD, then ortho to decide (3) Closed fracture of left side of symphysis pubis: Code(s): S32.592A - Other specified fracture of left pubis, initial encounter for closed fracture Status: Acute Assessment and Plan: Nonsurgical, supportive care PT/OT when appropriate Most likely will need a TLSO brace Pain medications on board (4) Heart failure with reduced ejection fraction: Code(s): I50.20 - Unspecified systolic (congestive) heart failure Status: Acute Assessment and Plan: Echo noted an EF of 30-35%, with diastolic dysfunction Appears to be a chronic combined systolic and diastolic heart failure without exacerbation Continue Entresto and beta-malcolm. Trend urine output Daily weights (5) Pulmonary emboli: Onset Date: 07/2022 Code(s): I26.99 - Other pulmonary embolism without acute cor pulmonale Status: Chronic Assessment and Plan: Single pulmonary embolism mid subsegmental pulmonary artery of the right lower lobe noted on CTA of the chest on 08/24/2022. [id number] DVT noted at that time as well Risk over benefit of anticoagulation should be evaluated Given her repeated falls Venous doppler no acute DVT noted CTA ordered Concern if unresolved will need to start heparin until surgery Wells score 1 for DVT, 1.5 for PE which are mild to moderate risk Has-Bled 4 (6) Thrombosis of right peroneal vein: Onset Date: 07/2022 Code(s): I82.451 - Acute embolism and thrombosis of right peroneal vein Status: Chronic Assessment and Plan: As above. (7) Chronic anticoagulation: Code(s): Z79.01 - penitentiary (current) use of anticoagulants Status: Acute Assessment and Plan: Plan is as above. On eliquis Currently on hold for possible surgical intervention Time Spent With Patient Time with patient: 25 - 35 minutes Subjective Date/time seen: 10/20/22 1045 Interval history: 10/20/221044 Patient was lying in bed. Patient seems to be doing okay at this time. Daughter was in the room and stated the patient had just got back to sleep and she did not want her bothered due to the pain. However the patient was moaning. A complete review of systems unable to be obtained due to patient is health condition. 10/19/22? 16:45 This is a pleasant 82-year-old female with recent diagnosis of calf DVT and pulmonary embolism on anticoagulation, dementia, hypertension, and heart failure with reduced ejection fraction and a recent EF of 30 to 35%, who presented to the ED for evaluation of left hip pain after a fall. last weekend she moved from [facility] in [place] to assiste
--- NOTE | 2022-10-20 12:45 | PCOTNOTE ---
D/C therapy orders, as pt.cannot be currently evaluation due to bedrest prior to orthopedic surgery. Re-order evaluation after surgery has been completed and pt. able to participate.
[2022-10-20 15:10] VITALS: BP 188/75; PULSE 84; RESP 20; TEMP 36.9; O2SAT 95
[2022-10-20 20:37] VITALS: BP 161/73; PULSE 89; RESP 18; TEMP 36.3; O2SAT 98
[2022-10-21] VITALS (16 sets, daily range): BP systolic 133–166; BP diastolic 67–89; PULSE 64–108; RESP 12–18; TEMP 35.8–36.8; O2SAT 93–100
[2022-10-21] MEDS: MORPHINE SULFATE (*CRX) 4 MG/ML INJ 2 MG IV PUSH (02:00)
[2022-10-21 05:14] LABS: Basophils Percent Auto 0.2 % (0.2-1.2); Eosinophils Absolute Auto 0.1 K/mm3 (0-0.3); Eosinophils Percent Auto 0.8 % (0-4.4); Hematocrit 38.2 % (37.0-47.0); Hemoglobin 11.9 g/dL (12.0-15.0); Immature Granulocyte Absolute 0.05 K/mm3 (0.00-0.031); Immature Granulocyte Percent A 0.5 % (0-0.5); Lymphocytes Absolute Auto 1.12 K/mm3 (0.9-3.2); Lymphocytes Percent Auto 10.6 % (18.3-44.2); Mean Corpuscular HGB Conc 31.2 g/dl (32-36); Mean Corpuscular Hemoglobin 28.4 pg (26-34); Mean Corpuscular Volume 91.2 fl (80-100); Mean Platelet Volume 10.6 fl (7.4-10.4); Monocytes Absolute Auto 0.8 K/mm3 (0.1-0.6); Monocytes Percent Auto 7.8 % (2.6-8.5); Neutrophils Absolute Auto 8.4 K/mm3 (1.3-6.7); Neutrophils Percent Auto 80.1 % (45.5-73.1); Platelet Count Result 279 k/mm3 (150-375); Red Blood Count 4.19 M/mm3 (4.2-5.4); Red Cell Distribution Width 13.4 % (11.5-14.5); White Blood Count 10.5 K/mm3 (4.5-10.0)
[2022-10-21 05:17] LABS: Alanine Aminotransferase 29 U/L (6-35); Albumin Level 3.6 g/dL (3.5-5.1); Alkaline Phosphatase 84 U/L (38-126); Anion Gap 10 mmol/L (8-16); Aspartate Amino Transferase 46 U/L (14-36); Bilirubin,Total 1.2 mg/dL (0.2-1.3); Blood Urea Nitrogen 10 mg/dL (7-17); Calcium 8.3 mg/dL (8.4-10.2); Carbon Dioxide 28 mmol/L (22-30); Chloride 96 mmol/L (98-107); Estimated CRCL calculation 41 ml/min; Estimated Glomerular Filt Rate > 60; Glucose 89 mg/dL (65-110); Magnesium 1.9 mg/dL (1.6-2.3); Potassium 3.8 mmol/L (3.4-5.0); Sodium 134 mmol/L (137-145)
[2022-10-21] MEDS: ACETAMINOPHEN 500 MG TABLET 1000 MG PO (09:58)
[2022-10-21] MEDS: PANTOPRAZOLE 40 MG TABLET PO (10:16)
[2022-10-21] MEDS: METOPROLOL SUCCINATE EXT REL 12.5 MG TABCR PO (10:16)
[2022-10-21] MEDS: HYDROcodone/acetaminophen (*CRX) 5-325 MG TABLET 1 TAB PO ×2 (11:41→20:34)
--- NOTE | 2022-10-21 11:53 | P.PNIM_ITS ---
Progress Note: A&P Assessment and Plan (1) Unwitnessed fall: Code(s): R29.6 - Repeated falls Status: Acute Assessment and Plan: * Multiple falls noted in the last week * Presented to the ED after a fall * Xray shows displaced, angulated left femoral intertrochanteric fracture, possible nondisplaced fracture of the left pubic symphysis * Head CT does not show any acute intracranial process, possible sinusitis * Cervical spine does not show any acute fractures * Fall precautions implemented * PT/OT will be needed postoperatively (2) Intertrochanteric fracture of left femur: Code(s): S72.142A - Displaced intertrochanteric fracture of left femur, initial encounter for closed fracture Status: Acute Assessment and Plan: * Presented to the ED after a fall * Xray shows displaced, angulated left femoral intertrochanteric fracture, possible nondisplaced fracture of the left pubic symphysis * Appreciate orthopedic surgery consultation * Planning for surgical repair this afternoon * Eliquis on hold perioperatively. resume when appropriate per Orthopedic surgery recommendations * Pain Medication: Morphine 2mg IV Q4H PRN, Tylenol 1,000mg Q6H PRN * Ortho to manage post-op care * PT/OT when appropriate * DVT prophylaxis: SCD, then ortho to decide (3) Closed fracture of left side of symphysis pubis: Code(s): S32.592A - Other specified fracture of left pubis, initial encounter for closed fracture Status: Acute Assessment and Plan: * Nonsurgical, supportive care * PT/OT when appropriate * Pain medications on board (4) Heart failure with reduced ejection fraction: Code(s): I50.20 - Unspecified systolic (congestive) heart failure Status: Chronic Assessment and Plan: * Echo noted an EF of 30-35%, with diastolic dysfunction * Appears to be a chronic combined systolic and diastolic heart failure without exacerbation * Continue Entresto and beta-malcolm. * Trend urine output * Daily weights (5) Pulmonary emboli: Onset Date: 07/2022 Code(s): I26.99 - Other pulmonary embolism without acute cor pulmonale Status: Chronic Assessment and Plan: * Single pulmonary embolism mid subsegmental pulmonary artery of the right lower lobe noted on CTA of the chest on 08/24/2022. 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 * Also has history of atrial fibrillation, appears onset was also in July 2022 * will need to weigh risks versus benefits of continued anticoagulation given frequent falls, however would recommend at least 3 months of systemic anticoagulation from onset of VTE and discussion with patient's intermediate card tender prior to discontinuation (8) Epigastric pain: Code(s): R10.13 - Epigastric pain
--- NOTE | 2022-10-21 11:53 | PM.IMPN ---
Progress Note: A&P Assessment and Plan (1) Unwitnessed fall: Code(s): R29.6 - Repeated falls Status: Acute Assessment and Plan: Multiple falls noted in the last week Presented to the ED after a fall Xray shows displaced, angulated left femoral intertrochanteric fracture, possible nondisplaced fracture of the left pubic symphysis Head CT does not show any acute intracranial process, possible sinusitis Cervical spine does not show any acute fractures Fall precautions implemented PT/OT will be needed postoperatively (2) Intertrochanteric fracture of left femur: Code(s): S72.142A - Displaced intertrochanteric fracture of left femur, initial encounter for closed fracture Status: Acute Assessment and Plan: Presented to the ED after a fall Xray shows displaced, angulated left femoral intertrochanteric fracture, possible nondisplaced fracture of the left pubic symphysis Appreciate orthopedic surgery consultation Planning for surgical repair this afternoon Eliquis on hold perioperatively. resume when appropriate per Orthopedic surgery recommendations Pain Medication: Morphine 2mg IV Q4H PRN, Tylenol 1,000mg Q6H PRN Ortho to manage post-op care PT/OT when appropriate DVT prophylaxis: SCD, then ortho to decide (3) Closed fracture of left side of symphysis pubis: Code(s): S32.592A - Other specified fracture of left pubis, initial encounter for closed fracture Status: Acute Assessment and Plan: Nonsurgical, supportive care PT/OT when appropriate Pain medications on board (4) Heart failure with reduced ejection fraction: Code(s): I50.20 - Unspecified systolic (congestive) heart failure Status: Chronic Assessment and Plan: Echo noted an EF of 30-35%, with diastolic dysfunction Appears to be a chronic combined systolic and diastolic heart failure without exacerbation Continue Entresto and beta-malcolm. Trend urine output Daily weights (5) Pulmonary emboli: Onset Date: 07/2022 Code(s): I26.99 - Other pulmonary embolism without acute cor pulmonale Status: Chronic Assessment and Plan: Single pulmonary embolism mid subsegmental pulmonary artery of the right lower lobe noted on CTA of the chest on 08/24/2022. 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 Also has history of atrial fibrillation, appears onset was also in July 2022 will need to weigh risks versus benefits of continued anticoagulation given frequent falls, however would recommend at least 3 months of systemic anticoagulation from onset of VTE and discussion with patient's deboning team leader prior to discontinuation (8) Epigastric pain: Code(s): R10.13 - Epigastric pain Status: Acute Assessment and Plan: patient clutching hand over abdomen complaining of upper abdominal discomfort continue with pantoprazole Tums as needed will check lipase although do not suspect acute process Subjective Date/time seen: 10/21/22 11:53 Interval history: date of service: 10/21/2022 Rhea Dimas is an 82-year-old female with history atrial fibrillation on systemic anticoagulation,, chronic kidney daren
[2022-10-21 12:31] LABS: Lipase 26 U/L (23-300)
[2022-10-21] MEDS: SACUBITRIL/VALSARTAN 12-13 MG TABLET 1 TAB PO ×2 (12:41→20:34)
--- NOTE | 2022-10-21 13:36 | WPDANESEPPF ---
Anes - Initial Pre Proc Eval Procedure: Operation Date: 10/21/22 14:00 Proposed Procedures p Intertrochanteric Nail(Left) - Jerzy Mccollum MD Date/Time: 10/21/22 13:36 Surgeon: Vivienne Zuleta PA-C Pre Op Diagnosis: hip fracture Patient Data Age: 82 Gender: F Height: 1.57 m Weight: 55 kg Last Vital Signs Temp 36.2 C L 10/21/22 04:01 Pulse 108 H 10/21/22 10:16 Resp 18 10/21/22 04:01 BP 166/76 H 10/21/22 04:01 Pulse Ox 100 10/21/22 04:01 O2 Del Method Room Air 10/21/22 09:11 Allergies Allergy/AdvReac Type Severity Reaction Status Date / Time No Known Allergies Allergy Unknown Verified 10/19/22 18:11 Home Medications Medication Instructions Recorded Confirmed Type aspirin 81 mg tablet 81 mg PO DAILY 05/09/22 10/19/22 History duloxetine 30 mg capsule,delayed 30 mg PO DAILY 05/09/22 10/19/22 History release gabapentin 600 mg tablet 600 mg PO BID 05/09/22 10/19/22 History omeprazole 40 mg capsule,delayed 40 mg PO DAILY 05/09/22 10/19/22 History release apixaban 5 mg tablet (Eliquis) 5 mg PO Q12HR #60 tabs 08/26/22 10/19/22 Rx metoprolol succinate 25 mg 12.5 mg PO DAILY #30 tabs 08/26/22 10/19/22 Rx tablet,extended release 24 hr (Toprol XL) sacubitril 24 mg-valsartan 26 mg 0.5 tab PO Q12HR #60 tabs 08/26/22 10/19/22 Rx tablet (Entresto) hydrocodone-acetaminophen 5 - 325 mg BYMOUTH TID PRN Pain 10/19/22 10/19/22 History (Scale Score 7-10) mirabegron 25 mg tablet,extended 25 mg PO DAILY 10/19/22 10/19/22 History release 24 hr (Myrbetriq) Laboratory Tests 10/21/22 10/21/22 10/21/22 04:39 04:43 04:43 WBC 10.5 K/mm3 H K/mm3 (4.5-10.0) RBC 4.19 M/mm3 L M/mm3 (4.2-5.4) Hgb 11.9 g/dL L g/dL (12.0-15.0) Hct 38.2 % % (37.0-47.0) MCV 91.2 fl fl (80-100) MCH 28.4 pg pg (26-34) MCHC 31.2 g/dl L g/dl (32-36) RDW 13.4 % % (11.5-14.5) Plt Count 279 k/mm3 k/mm3 (150-375) MPV 10.6 fl H fl (7.4-10.4) Immature Gran % (Auto) 0.5 % % (0-0.5) Neut % (Auto) 80.1 % H % (45.5-73.1) Lymph % (Auto) 10.6 % L % (18.3-44.2) Gibson % (Auto) 7.8 % % (2.6-8.5) Eos % (Auto) 0.8 % % (0-4.4) Baso % (Auto) 0.2 % % (0.2-1.2) Lymph # (Auto) 1.12 K/mm3 K/mm3 (0.9-3.2) Gibson # (Auto) 0.8 K/mm3 H K/mm3 (0.1-0.6) Eos # (Auto) 0.1 K/mm3 K/mm3 (0-0.3) Baso # (Auto) 0.0 K/mm3 K/mm3 (0.0-0.1) Abs Immat Gran (auto) 0.05 K/mm3 H K/mm3 (0.00-0.031) Absolute Neuts (auto) 8.4 K/mm3 H K/mm3 (1.3-6.7) Absolute Nucleated RBC 0.0 K/mm3 K/mm3 (0.0-0.012) Nucleated RBC % 0.0 % % (0.0-0.2) Sodium 134 mmol/L L mmol/L (137-145) Potassium 3.8 mmol/L mmol/L (3.4-5.0) Chloride 96 mmol/L L mmol/L (98-107) Carbon Dioxide 28 mmol/L mmol/L (22-30) Anion Gap 10 mmol/L mmol/L (8-16) BUN 10 mg/dL mg/dL (7-17) Creatinine 0.70 mg/dL mg/dL (0.7-1.0) Estim Creat Clear Calc 41 ml/min ml/min Estimated GFR > 60 (59 - ) Glucose 89 mg/dL mg/dL (65-110) Calcium 8.3 mg/dL L mg/dL (8.4-10.2) Magnesium 1.9 mg/dL mg/dL (1.6-2.3) Total Bilirubin 1.2 mg/dL mg/dL (0.2-1.3) AST 46 U/L H U/L (14-36) ALT 29 U/L U/L (6-35) Alkaline Phosphatase 84 U/L U/L (38-126) Total Protein 7.0 g/dL g/dL (6.3-8.2) Albumin 3.6 g/dL g/dL (3.5-5.1) Lipase 26 U/L U/L (23-300) Patient hx anesthesia problems: none Family hx anesthesia problems: none Results Review: All pre-operative results and documents have been reviewed as part of the pre-operative evaluation. [facility] Past Medical History Medical History (Reviewed 10/21/22 @ 13:36 by Gasper Rogers
[2022-10-21] MEDS: TRANEXAMIC ACID 1,000MG/ISO100 1,000 MG/100 ML BAG 200 MG IVPB (13:39)
[2022-10-21] MEDS: LACTATED RINGERS 1,000 ML 30 ML IV CONT (13:50)
--- NOTE | 2022-10-21 13:50 | WPDHPUPDATE1 ---
History and Physical Update Update Date/Time: 10/21/22 13:50 History and Physical has been reviewed, including an updated exam of the patient. There are NO changes in the patient's condition. Risks, benefits, and alternatives have been discussed and questions answered. Patient agrees to proceed with procedure.
[2022-10-21] MEDS: ceFAZolin 2 GM/D5W 50 ML 2 GM/50 ML BAG IVPB (13:56)
[2022-10-21] MEDS: BUPIVACAINE/EPINEPHRINE 0.25% 10 ML VIAL 30 ML INFILTRATE (14:49)
--- NOTE | 2022-10-21 15:00 | P.OP_ITS ---
Procedure Note - Detailed Date of Procedure 10/21/22 Pre-op Diagnosis Left hip fracture Post-op Diagnosis Same Procedure Performed left hip intramedullary nail with screw Surgeon Jerzy Mccollum MD Alternative Medicine Practitioner 1st medical staff assistant Anesthesia General Indications 82-year-old woman who fell and sustained a left hip intertrochanteric fracture. Power of putty and caulking supervisor desires operative treatment. Description of Procedure After informed consent the operative extremity was marked in the preoperative holding area. Patient received intravenous antibiotics. The patient was taken to the operative room, placed in the supine position, general anesthesia induced by the anesthesia team, and was placed on a fracture table with longitudinal traction applied to the left leg. The hip fracture was reduced to near anatomic position and verified with image intensification. A time-out was performed confirming the patient, site of the surgery and plan. The left lower extremity was prepped and draped sterilely from the knee to the iliac crest region using a ChloraPrep skin solution. Incision was made just proximal to greater trochanter down to the subcutaneous tissues. Hemostasis controlled with electrocautery. Blunt dissection through the fascia to the tip of the greater trochanter. A starter awl was placed at the tip of the greater trochanter into the medullary canal of the femur. This was checked with image intensification and was in good position. Intramedullary guide estrella positioned. A one-step hand reaming done proximally. Intramedullary canal was reamed with a 12.5 millimeter flexible reamer. Measuring was then performed off of the guide estrella. Neck angle selected off of preoperative radiographs temp plating. 125 degree 11.5 X 360mm Nail opened on the back table and assembled. This was then inserted over the guide estrella to the correct depth. Guide estrella removed. Lag screw was then placed with a stab incision over the lateral femur using a 10 blade knife. Blunt dissection down to the lateral side of the bone. Soft tissue protectors placed. Guide pin placed in the center center position of the femoral head and measured. 90 millimeter x 10.5 millimeter lag screw placed to correct depth and verified with image intensific ation. Traction and released from the leg and compression of the fracture performed with the external compression device. Proximal locking screw placed. Distal locking of the nail not felt to be necessary due to stability in the intramedullary canal. Final image intensification confirm reduction of the fracture and placement of the hardware. Wounds then thoroughly irrigated with antibiotic solution. Fascia repaired with 0 Vicryl interrupted suture. Subcutaneous tissue repaired with 2 0 Vicryl interrupted suture. Skin repaired with 3-0 Monocryl subcuticular stitch and glue. Sterile dressings applied. Patient then awoke from anesthesia, extubated taken to recovery room stable condition. All sponge, needle and instrument counts correct at the end the case. Implants Shanda natural nail 125 degree 11.5 mm x 36 cm, 90 mm by 10.5 mm lag screw Estimated Blood Loss 400 Drains No Packing No Pathology None sent Complications None Condition Stable Disposition PACU
[2022-10-21] MEDS: DOCUSATE SODIUM 100 MG CAPSULE PO (16:28)
[2022-10-21] MEDS: polyethylene glycoL 3350 17 GM POWD.PACK PO (16:29)
[2022-10-21] MEDS: MIRABEGRON 25 MG ER TABLET PO (16:29)
[2022-10-21] MEDS: ASPIRIN 81 MG ENTERIC TABLET PO (16:29)
[2022-10-21] MEDS: DULoxetine HCL 30 MG CAPSULE.DR PO (16:29)
[2022-10-21] MEDS: KCL 20 MEQ/D5/0.45% SOD CHL 1,000 ML 80 ML IV CONT (17:50)
[2022-10-21] MEDS: GABAPENTIN 300 MG CAPSULE 600 MG PO (20:34)
[2022-10-22] VITALS (7 sets, daily range): BP systolic 132–156; BP diastolic 59–78; PULSE 89–98; RESP 12–18; TEMP 36.2–36.6; O2SAT 92–96
[2022-10-22] MEDS: KCL 20 MEQ/D5/0.45% SOD CHL 1,000 ML 80 ML IV CONT ×2 (04:56→17:02)
[2022-10-22 05:46] LABS: Basophils Percent Auto 0.1 % (0.2-1.2); Hemoglobin 10.1 g/dL (12.0-15.0); Immature Granulocyte Absolute 0.05 K/mm3 (0.00-0.031); Immature Granulocyte Percent A 0.4 % (0-0.5); Lymphocytes Absolute Auto 0.86 K/mm3 (0.9-3.2); Lymphocytes Percent Auto 6.9 % (18.3-44.2); Mean Corpuscular HGB Conc 32.6 g/dl (32-36); Mean Corpuscular Hemoglobin 28.3 pg (26-34); Mean Corpuscular Volume 86.8 fl (80-100); Mean Platelet Volume 10.9 fl (7.4-10.4); Monocytes Absolute Auto 0.9 K/mm3 (0.1-0.6); Monocytes Percent Auto 6.9 % (2.6-8.5); Neutrophils Absolute Auto 10.7 K/mm3 (1.3-6.7); Neutrophils Percent Auto 85.7 % (45.5-73.1); Platelet Count Result 259 k/mm3 (150-375); Red Blood Count 3.57 M/mm3 (4.2-5.4); Red Cell Distribution Width 13.3 % (11.5-14.5); White Blood Count 12.4 K/mm3 (4.5-10.0)
[2022-10-22 05:54] LABS: Anion Gap 7 mmol/L (8-16); Blood Urea Nitrogen 12 mg/dL (7-17); Calcium 8.3 mg/dL (8.4-10.2); Carbon Dioxide 27 mmol/L (22-30); Chloride 98 mmol/L (98-107); Estimated CRCL calculation 41 ml/min; Estimated Glomerular Filt Rate > 60; Glucose 166 mg/dL (65-110); Potassium 3.6 mmol/L (3.4-5.0); Sodium 132 mmol/L (137-145)
--- NOTE | 2022-10-22 09:00 | PM.IMPN ---
Progress Note: A&P Assessment and Plan (1) Unwitnessed fall: Code(s): R29.6 - Repeated falls Status: Acute Assessment and Plan: Multiple falls noted in the last week Presented to the ED after a fall Xray shows displaced, angulated left femoral intertrochanteric fracture, possible nondisplaced fracture of the left pubic symphysis Head CT does not show any acute intracranial process, possible sinusitis Cervical spine does not show any acute fractures Fall precautions implemented PT/OT will be needed postoperatively (2) Intertrochanteric fracture of left femur: Code(s): S72.142A - Displaced intertrochanteric fracture of left femur, initial encounter for closed fracture Status: Acute Assessment and Plan: POD1 Presented to the ED after a fall Xray shows displaced, angulated left femoral intertrochanteric fracture, possible nondisplaced fracture of the left pubic symphysis Appreciate orthopedic surgery consultation Planning for surgical repair this afternoon Eliquis restarted per ortho Pain Medication: Morphine 2mg IV Q4H PRN, [place] 5/325mg PO Q4H PRN, Tylenol 650mg Q6H PRN Bowel regimen: Suppository PRN, miralax and Colace scheduled Ortho to manage post-op care PT/OT when appropriate DVT prophylaxis: SCD, then ortho to decide (3) Closed fracture of left side of symphysis pubis: Code(s): S32.592A - Other specified fracture of left pubis, initial encounter for closed fracture Status: Acute Assessment and Plan: Nonsurgical, supportive care PT/OT when appropriate Pain medications on board (4) Heart failure with reduced ejection fraction: Code(s): I50.20 - Unspecified systolic (congestive) heart failure Status: Chronic Assessment and Plan: Echo noted an EF of 30-35%, with diastolic dysfunction Appears to be a chronic combined systolic and diastolic heart failure without exacerbation Continue Entresto and beta-malcolm. Trend urine output Daily weights Stable at this time (5) Pulmonary emboli: Onset Date: 07/2022 Code(s): I26.99 - Other pulmonary embolism without acute cor pulmonale Status: Chronic Assessment and Plan: Single pulmonary embolism mid subsegmental pulmonary artery of the right lower lobe noted on CTA of the chest on 08/24/2022. 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 Also has history of atrial fibrillation, appears onset was also in July 2022 will need to weigh risks versus benefits of continued anticoagulation given frequent falls, however would recommend at least 3 months of systemic anticoagulation from onset of VTE and discussion with patient's resin mixer prior to discontinuation (8) Epigastric pain: Code(s): R10.13 - Epigastric pain Status: Acute Assessment and Plan: patient clutching hand over abdomen complaining of upper abdominal discomfort continue with pantoprazole Tums as needed Lipase 26 Trend pain Time Spent With Patient Time with patient: Greater than 35 minutes Subjective Date/time seen: 10/22/22 07:20 Interval history: 10/22/22 0900 patient is lying in bed. Patient appears comfortable and stat
--- NOTE | 2022-10-22 09:00 | P.PNIM_ITS ---
Progress Note: A&P Assessment and Plan (1) Unwitnessed fall: Code(s): R29.6 - Repeated falls Status: Acute Assessment and Plan: * Multiple falls noted in the last week * Presented to the ED after a fall * Xray shows displaced, angulated left femoral intertrochanteric fracture, possible nondisplaced fracture of the left pubic symphysis * Head CT does not show any acute intracranial process, possible sinusitis * Cervical spine does not show any acute fractures * Fall precautions implemented * PT/OT will be needed postoperatively (2) Intertrochanteric fracture of left femur: Code(s): S72.142A - Displaced intertrochanteric fracture of left femur, initial encounter for closed fracture Status: Acute Assessment and Plan: * POD1 * Presented to the ED after a fall * Xray shows displaced, angulated left femoral intertrochanteric fracture, possible nondisplaced fracture of the left pubic symphysis * Appreciate orthopedic surgery consultation * Planning for surgical repair this afternoon * Eliquis restarted per ortho * Pain Medication: Morphine 2mg IV Q4H PRN, [place] 5/325mg PO Q4H PRN, Tylenol 650mg Q6H PRN * Bowel regimen: Suppository PRN, miralax and Colace scheduled * Ortho to manage post-op care * PT/OT when appropriate * DVT prophylaxis: SCD, then ortho to decide (3) Closed fracture of left side of symphysis pubis: Code(s): S32.592A - Other specified fracture of left pubis, initial encounter for closed fracture Status: Acute Assessment and Plan: * Nonsurgical, supportive care * PT/OT when appropriate * Pain medications on board (4) Heart failure with reduced ejection fraction: Code(s): I50.20 - Unspecified systolic (congestive) heart failure Status: Chronic Assessment and Plan: * Echo noted an EF of 30-35%, with diastolic dysfunction * Appears to be a chronic combined systolic and diastolic heart failure without exacerbation * Continue Entresto and beta-malcolm. * Trend urine output * Daily weights * Stable at this time (5) Pulmonary emboli: Onset Date: 07/2022 Code(s): I26.99 - Other pulmonary embolism without acute cor pulmonale Status: Chronic Assessment and Plan: * Single pulmonary embolism mid subsegmental pulmonary artery of the right lower lobe noted on CTA of the chest on 08/24/2022. 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 * Also has history of atrial fibrillation, appears onset was also in July 2022 * will need to weigh risks versus benefits of continued anticoagulation given frequent falls, however would recommend at least 3 months of systemic anticoagulation from onset of VTE and discussion with patient's cardiolo
[2022-10-22] MEDS: ASPIRIN 81 MG ENTERIC TABLET PO (11:27)
[2022-10-22] MEDS: DULoxetine HCL 30 MG CAPSULE.DR PO (11:27)
[2022-10-22] MEDS: PANTOPRAZOLE 40 MG TABLET PO (11:27)
[2022-10-22] MEDS: METOPROLOL SUCCINATE EXT REL 12.5 MG TABCR PO (11:27)
[2022-10-22] MEDS: SACUBITRIL/VALSARTAN 12-13 MG TABLET 1 TAB PO ×2 (11:27→20:40)
[2022-10-22] MEDS: MIRABEGRON 25 MG ER TABLET PO (11:27)
[2022-10-22] MEDS: DOCUSATE SODIUM 100 MG CAPSULE PO (11:28)
[2022-10-22] MEDS: GABAPENTIN 300 MG CAPSULE 600 MG PO ×2 (11:28→20:37)
[2022-10-22] MEDS: HYDROcodone/acetaminophen (*CRX) 5-325 MG TABLET 1 TAB PO (20:37)
[2022-10-22] MEDS: APIXABAN 5 MG TABLET PO (20:40)
[2022-10-23] MEDS: KCL 20 MEQ/D5/0.45% SOD CHL 1,000 ML 80 ML IV CONT (05:26)
[2022-10-23] MEDS: MORPHINE SULFATE (*CRX) 4 MG/ML INJ 2 MG IV PUSH (05:50)
[2022-10-23 06:09] LABS: Basophils Percent Auto 0.1 % (0.2-1.2); Eosinophils Absolute Auto 0.2 K/mm3 (0-0.3); Eosinophils Percent Auto 1.4 % (0-4.4); Hematocrit 32.2 % (37.0-47.0); Hemoglobin 10.1 g/dL (12.0-15.0); Immature Granulocyte Absolute 0.04 K/mm3 (0.00-0.031); Immature Granulocyte Percent A 0.3 % (0-0.5); Lymphocytes Absolute Auto 1.17 K/mm3 (0.9-3.2); Mean Corpuscular HGB Conc 31.4 g/dl (32-36); Mean Corpuscular Hemoglobin 28.1 pg (26-34); Mean Corpuscular Volume 89.7 fl (80-100); Mean Platelet Volume 10.3 fl (7.4-10.4); Monocytes Absolute Auto 0.8 K/mm3 (0.1-0.6); Monocytes Percent Auto 6.4 % (2.6-8.5); Neutrophils Absolute Auto 9.6 K/mm3 (1.3-6.7); Neutrophils Percent Auto 81.8 % (45.5-73.1); Platelet Count Result 271 k/mm3 (150-375); Red Blood Count 3.59 M/mm3 (4.2-5.4); Red Cell Distribution Width 13.3 % (11.5-14.5); White Blood Count 11.8 K/mm3 (4.5-10.0)
[2022-10-23 06:23] LABS: Alanine Aminotransferase 15 U/L (6-35); Alkaline Phosphatase 81 U/L (38-126); Anion Gap 9 mmol/L (8-16); Aspartate Amino Transferase 26 U/L (14-36); Bilirubin,Total 0.6 mg/dL (0.2-1.3); Blood Urea Nitrogen 10 mg/dL (7-17); Calcium 8.2 mg/dL (8.4-10.2); Carbon Dioxide 25 mmol/L (22-30); Chloride 101 mmol/L (98-107); Estimated CRCL calculation 41 ml/min; Estimated Glomerular Filt Rate > 60; Glucose 112 mg/dL (65-110); Magnesium 1.9 mg/dL (1.6-2.3); Potassium 3.6 mmol/L (3.4-5.0); Sodium 135 mmol/L (137-145)
[2022-10-23 08:00] VITALS: BP 139/63; PULSE 86; RESP 18; TEMP 36.4; O2SAT 90
--- NOTE | 2022-10-23 08:48 | PCOTNOTE ---
Attempted to see patient this AM for OT, patient reluctant but agreeable with max encouragement. Attempted to bring patient's BLEs over EOB in preparation for transfer over to chair. Patient yelled out in pain, resisted sitting up. Patient refused any activity, including washing her face while in bed. Patient not seen this AM for OT. Will try again to see.
[2022-10-23] MEDS: ASPIRIN 81 MG ENTERIC TABLET PO (10:04)
[2022-10-23] MEDS: APIXABAN 5 MG TABLET PO ×2 (10:04→20:20)
[2022-10-23] MEDS: polyethylene glycoL 3350 17 GM POWD.PACK PO (10:04)
[2022-10-23 10:05] VITALS: PULSE 96
[2022-10-23] MEDS: GABAPENTIN 300 MG CAPSULE 600 MG PO ×2 (10:05→20:20)
[2022-10-23] MEDS: METOPROLOL SUCCINATE EXT REL 12.5 MG TABCR PO (10:05)
[2022-10-23] MEDS: DULoxetine HCL 30 MG CAPSULE.DR PO (10:05)
[2022-10-23] MEDS: SACUBITRIL/VALSARTAN 12-13 MG TABLET 1 TAB PO ×2 (10:06→20:20)
[2022-10-23] MEDS: HYDROcodone/acetaminophen (*CRX) 5-325 MG TABLET 1 TAB PO ×2 (10:06→17:29)
[2022-10-23] MEDS: PANTOPRAZOLE 40 MG TABLET PO (10:06)
[2022-10-23] MEDS: MIRABEGRON 25 MG ER TABLET PO (10:06)
--- NOTE | 2022-10-23 13:36 | P.PNIM_ITS ---
Progress Note: A&P Assessment and Plan (1) Unwitnessed fall: Code(s): R29.6 - Repeated falls Status: Acute Assessment and Plan: Multiple falls noted in the last week Presented to the ED after most recent fall on 10/19 * Patient believes she lost her balance and did not think that she hit her head * Xray shows displaced, angulated left femoral intertrochanteric fracture, possible nondisplaced fracture of the left pubic symphysis * Head CT does not show any acute intracranial process, possible sinusitis * Cervical spine does not show any acute fractures * Fall precautions implemented * Appreciate PT/OT (2) Intertrochanteric fracture of left femur: Code(s): S72.142A - Displaced intertrochanteric fracture of left femur, initial encounter for closed fracture Status: Acute Assessment and Plan: Xray shows displaced, angulated left femoral intertrochanteric fracture, possible nondisplaced fracture of the left pubic symphysis * Appreciate orthopedic surgery consultation * Underwent surgical repair on 10/21/[address] Mccollum * Continue home eliquis for DVT prophylaxis * Analgesics as need for pain * Snow catheter to be removed today and begin voiding trial * Continue PT/OT (3) Closed fracture of left side of symphysis pubis: Code(s): S32.592A - Other specified fracture of left pubis, initial encounter for closed fracture Status: Acute Assessment and Plan: Nonsurgical, supportive care * PT/OT when appropriate * Pain medications on board (4) Heart failure with reduced ejection fraction: Code(s): I50.20 - Unspecified systolic (congestive) heart failure Status: Chronic Assessment and Plan: Appears to be a chronic combined systolic and diastolic heart failure without exacerbation * Echo noted an EF of 30-35%, with diastolic dysfunction * Continue Entresto and beta-malcolm. 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 * Also has history of atrial fibrillation, appears onset was also in July 2022 * Consider risks versus benefits of continued anticoagulation given frequent falls, however would recommend at least 3 months of systemic anticoagulation from onset of VTE and discussion with patient's cognos bi developer prior to discontinuation. She will need to follow up with her PCP for further monitoring (6) Epigastric pain: Code(s): R10.13 - Epigastric pain Status: Resolved Assessment and Plan: Resolved. * continue with pantoprazole * Tums as needed * Lipase within normal limits (7) Venous thromboembolism: Code(s): I82.90 - Acute embolism and thrombosis of unspecified vein Status: Acute Assessment and Plan: Single pulmonary embolism of mid subsegmental pulmonary artery of the right lower lobe noted on CTA of the chest on 08/24/2022 and below-knee DVT also noted at that time. * Venous doppler 10/20 showed no evidence of DVT * CTA of chest on 10/20 which showed interval resolution of lingular and right lower lobe pulmonary embolism * Continue home Eliquis Subjective Date/time seen: 10/23/22 13:36 Interval history: Date of service: 10/23/2022 Rhea Bear [place]? is an 82-year-old female with history atrial fibrillation on syste
--- NOTE | 2022-10-23 13:36 | PM.IMPN ---
Progress Note: A&P Assessment and Plan (1) Unwitnessed fall: Code(s): R29.6 - Repeated falls Status: Acute Assessment and Plan: Multiple falls noted in the last week Presented to the ED after most recent fall on 10/19 Patient believes she lost her balance and did not think that she hit her head Xray shows displaced, angulated left femoral intertrochanteric fracture, possible nondisplaced fracture of the left pubic symphysis Head CT does not show any acute intracranial process, possible sinusitis Cervical spine does not show any acute fractures Fall precautions implemented Appreciate PT/OT (2) Intertrochanteric fracture of left femur: Code(s): S72.142A - Displaced intertrochanteric fracture of left femur, initial encounter for closed fracture Status: Acute Assessment and Plan: Xray shows displaced, angulated left femoral intertrochanteric fracture, possible nondisplaced fracture of the left pubic symphysis Appreciate orthopedic surgery consultation Underwent surgical repair on 10/21/[address] Mccollum Continue home eliquis for DVT prophylaxis Analgesics as need for pain Snow catheter to be removed today and begin voiding trial Continue PT/OT (3) Closed fracture of left side of symphysis pubis: Code(s): S32.592A - Other specified fracture of left pubis, initial encounter for closed fracture Status: Acute Assessment and Plan: Nonsurgical, supportive care PT/OT when appropriate Pain medications on board (4) Heart failure with reduced ejection fraction: Code(s): I50.20 - Unspecified systolic (congestive) heart failure Status: Chronic Assessment and Plan: Appears to be a chronic combined systolic and diastolic heart failure without exacerbation Echo noted an EF of 30-35%, with diastolic dysfunction Continue Entresto and beta-malcolm. 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 Also has history of atrial fibrillation, appears onset was also in July 2022 Consider risks versus benefits of continued anticoagulation given frequent falls, however would recommend at least 3 months of systemic anticoagulation from onset of VTE and discussion with patient's relocation director prior to discontinuation. She will need to follow up with her PCP for further monitoring (6) Epigastric pain: Code(s): R10.13 - Epigastric pain Status: Resolved Assessment and Plan: Resolved. continue with pantoprazole Tums as needed Lipase within normal limits (7) Venous thromboembolism: Code(s): I82.90 - Acute embolism and thrombosis of unspecified vein Status: Acute Assessment and Plan: Single pulmonary embolism of mid subsegmental pulmonary artery of the right lower lobe noted on CTA of the chest on 08/24/2022 and below-knee DVT also noted at that time. Venous doppler 10/20 showed no evidence of DVT CTA of chest on 10/20 which showed interval resolution of lingular and right lower lobe pulmonary embolism Continue home Eliquis Subjective Date/time seen: 10/23/22 13:36 Interval history: Date of service: 10/23/2022 Rhea Dimas? is an 82-year-old female with history atrial fibrillation on systemic anticoagulation, chronic kidney failure, hypertension, PE and DVT maintained on anticoagulation, TIA, osteoporosis,? and dementia? who is seen in follow-up for left hip fracture.? Patient is a poor historian secondary to dementia.? She is sitting up at the chair. States she just finished eating her lunch, though her POLICE COMMUNICATIONS DISPATCHER noted that her lunch tray has not been delivered yet. The patient tells me that she has a hard time remembering things. She has no hip
[2022-10-23 14:34] VITALS: BP 90/43; PULSE 93; RESP 16; TEMP 36.5; O2SAT 98
[2022-10-23 14:49] VITALS: O2SAT 97
[2022-10-23 16:00] VITALS: BP 132/55; PULSE 82; RESP 16; TEMP 36.2; O2SAT 93
[2022-10-23] MEDS: DOCUSATE SODIUM 100 MG CAPSULE PO (17:27)
[2022-10-23 20:07] VITALS: BP 129/53; PULSE 79; RESP 16; TEMP 35.7; O2SAT 96
[2022-10-24] VITALS: BP 123/52; PULSE 82; RESP 18; TEMP 36.1; O2SAT 91
[2022-10-24] MEDS: HYDROcodone/acetaminophen (*CRX) 5-325 MG TABLET 1 TAB PO ×3 (01:15→20:02)
[2022-10-24 04:42] VITALS: BP 128/61; PULSE 74; RESP 18; TEMP 35.9; O2SAT 95
[2022-10-24 05:50] LABS: Hematocrit 28.6 % (37.0-47.0); Hemoglobin 9.1 g/dL (12.0-15.0); Mean Corpuscular HGB Conc 31.8 g/dl (32-36); Mean Corpuscular Hemoglobin 28.4 pg (26-34); Mean Corpuscular Volume 89.4 fl (80-100); Mean Platelet Volume 10.7 fl (7.4-10.4); Platelet Count Result 253 k/mm3 (150-375); Red Cell Distribution Width 13.4 % (11.5-14.5)
[2022-10-24 05:59] LABS: Anion Gap 8 mmol/L (8-16); Blood Urea Nitrogen 13 mg/dL (7-17); Calcium 7.7 mg/dL (8.4-10.2); Carbon Dioxide 24 mmol/L (22-30); Chloride 100 mmol/L (98-107); Estimated CRCL calculation 41 ml/min; Estimated Glomerular Filt Rate > 60; Glucose 85 mg/dL (65-110); Potassium 4.1 mmol/L (3.4-5.0); Sodium 132 mmol/L (137-145)
[2022-10-24 09:16] VITALS: PULSE 84
[2022-10-24] MEDS: DULoxetine HCL 30 MG CAPSULE.DR PO (09:16)
[2022-10-24] MEDS: SACUBITRIL/VALSARTAN 12-13 MG TABLET 1 TAB PO ×2 (09:16→20:02)
[2022-10-24] MEDS: ASPIRIN 81 MG ENTERIC TABLET PO (09:16)
[2022-10-24] MEDS: GABAPENTIN 300 MG CAPSULE 600 MG PO ×2 (09:16→20:01)
[2022-10-24] MEDS: DOCUSATE SODIUM 100 MG CAPSULE PO (09:16)
[2022-10-24] MEDS: PANTOPRAZOLE 40 MG TABLET PO (09:16)
[2022-10-24] MEDS: APIXABAN 5 MG TABLET PO ×2 (09:16→20:01)
[2022-10-24] MEDS: METOPROLOL SUCCINATE EXT REL 12.5 MG TABCR PO (09:16)
[2022-10-24] MEDS: MIRABEGRON 25 MG ER TABLET PO (09:16)
--- NOTE | 2022-10-24 09:16 | PM.PNORT ---
Progress Note: A&P Assessment and Plan (1) Intertrochanteric fracture of left femur: Code(s): S72.142A - Displaced intertrochanteric fracture of left femur, initial encounter for closed fracture Status: Acute Assessment and Plan: POD #3 Continue PT/OT. WBAT. Walker. HIGH FALL RISK. Continue pain control. Ice hip. Protect skin. DVT prophylaxis with resumed Eliquis. SCDs. Incentive Spirometry Use reviewed. Monitor Dressing. Change prior to discharge. Bowel Regimen. Dispo: SNF pending progress with PT/OT and medical clearance. (2) Unwitnessed fall: Code(s): R29.6 - Repeated falls Status: Acute (3) Heart failure with reduced ejection fraction: Code(s): I50.20 - Unspecified systolic (congestive) heart failure Status: Chronic Subjective Subjective Date/Time Seen: 10/24/22 09:16 Post Op day: 3 Principal diagnosis: left hip intramedullary nail with screw Interval history: POD #3: left hip intramedullary nail with screw Patient confused at baseline. Reports pain on the lateral aspect of the left hip. Refusing breakfast. No other complaints. Review of Systems Constitutional: Constitutional: Denies chills, Denies fatigue, Denies fever(s), Denies night sweats and Denies weakness Cardiovascular: Cardiovascular: Denies chest pain, Denies lightheadedness, Denies palpitations and Denies dyspnea Respiratory: Respiratory: Denies cough, Denies dyspnea and Denies wheezing Gastrointestinal: Gastrointestinal: Denies abdominal pain, Denies diarrhea, Denies nausea and Denies vomiting Musculoskeletal: Musculoskeletal: Reports arthralgias (left hip ), Reports joint swelling (left hip ) and Denies numbness Neurologic: Denies numbness and Denies weakness Endocrine: Endocrine: Denies fatigue and Denies palpitations Allergic/Immunologic: Allergic/Immunologic: Denies wheezing Exam Const: General: comfortable and no acute distress Orientation/consciousness: patient oriented x3 Limitations: no limitations Resp: Effort & Inspection: normal respiratory effort Cardio: Rate: regular rate Rhythm: regular rhythm GI: Inspection: non-distended Skin: General skin exam: normal color and wounds noted (incision left hip C/D/I ) Wounds: wounds noted (incision left hip C/D/I ) Neuro: General: patient oriented x3 Extrem: Left lower extremity: hip/thigh Details: tenderness Location: of the hip Location: laterally and anteriorly, swelling (thigh soft ) Location: of the hip (lateral. ), abnormal ROM (limitations with internal/external rotation and flexion/extension due to recent surgical intervention ) and other (incision lateral hip c/d/i. ), knee Details: normal to inspection and normal ROM; no tenderness and no swelling, lower leg (Negative Alyssa's Sign ) Details: no edema, ankle (+ankle dorsiflexion/plantarflexion ) Details: normal to inspection, no edema and normal ROM; no tenderness, no swelling and no warmth and foot Details: normal capillary refill, toes with normal ROM, vascular exam Details: dorsalis pedis pulse present and motor-sensory exam light-touch normal in all toes; no tenderness, no ecchymosis and no crepitus Psych: Mental Status: mental status grossly normal Affect: normal affect Objective Data Vital Signs Vital Signs: Vital Signs - 24 hr 10/23/22 10:05 10/23/22 14:34 10/23/22 14:49 Temperature 36.5 C Pulse Rate 96 93 Respiratory Rate 16 Blood Pressure 90/43 L Pulse Oximetry 98 97 Oxygen Delivery Room Air 10/23/22 16:00 10/23/22 20:07 10/23/22 20:00 Temperature 36.2 C L 35.7 C L Pulse Rate 82 79 Respiratory Rate 16 16 Blood Pressure 132/55 L 129/53 L Pulse Oximetry 93 96 Oxygen Delivery Room Air 10/24/22 00:00 10/24/22 04:42 Temperature 36.1 C L 35.9 C L Pulse Rate 82 74 Respiratory Rate 18 18 Blood Pressure 123/52 L 128/61 Pulse Oximetry 91 95 Oxygen Delivery Intake/Output Intake/Output: Intake & Output 10/21/22 10/22/22
[2022-10-24 11:40] VITALS: BP 152/59; PULSE 92; RESP 22; TEMP 36.8; O2SAT 95
--- NOTE | 2022-10-24 12:50 | PCOTNOTE ---
Attempted to see patient this pm, however patient sleeping upon entering and refused stating, No. Not today. I'm too tired. Pt kept eyes closed and was not seen for this reason.
--- NOTE | 2022-10-24 15:32 | P.PNIM_ITS ---
Progress Note: A&P Assessment and Plan (1) Unwitnessed fall: Code(s): R29.6 - Repeated falls Status: Acute Assessment and Plan: Multiple falls noted in the last week. Presented to the ED after most recent fall on 10/19 * Patient believes she lost her balance and did not think that she hit her head * Xray showed displaced, angulated left femoral intertrochanteric fracture, possible nondisplaced fracture of the left pubic symphysis * Head CT does not show any acute intracranial process * Cervical spine does not show any acute fractures * Fall precautions implemented * Appreciate PT/OT (2) Intertrochanteric fracture of left femur: Code(s): S72.142A - Displaced intertrochanteric fracture of left femur, initial encounter for closed fracture Status: Acute Assessment and Plan: Xray shows displaced, angulated left femoral intertrochanteric fracture, possibl e nondisplaced fracture of the left pubic symphysis * Appreciate orthopedic surgery consultation * Underwent surgical repair on 10/21/[address] Mccollum * Continue home eliquis for DVT prophylaxis * Analgesics as need for pain. Transition to scheduled tylenol for improved pain control * Continue PT/OT * Planning for SNF following discharge (3) Closed fracture of left side of symphysis pubis: Code(s): S32.592A - Other specified fracture of left pubis, initial encounter for closed fracture Status: Acute Assessment and Plan: Nonsurgical, supportive care * Continue PT/OT * Pain medications on board (4) Heart failure with reduced ejection fraction: Code(s): I50.20 - Unspecified systolic (congestive) heart failure Status: Chronic Assessment and Plan: Appears to be a chronic combined systolic and diastolic heart failure without exacerbation * Echo noted an EF of 30-35%, with diastolic dysfunction * Continue Entresto and beta-malcolm. 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 * Also has history of atrial fibrillation, appears onset was also in July 2022 * Consider risks versus benefits of continued anticoagulation given frequent falls, however would recommend at least 3 months of systemic anticoagulation from onset of VTE and discussion with patient's financial accounting manager prior to discontinuation. She will need to follow up with her PCP for further monitoring (6) Epigastric pain: Code(s): R10.13 - Epigastric pain Status: Resolved Assessment and Plan: Resolved. * continue with pantoprazole * Tums as needed * Lipase within normal limits (7) Venous thromboembolism: Code(s): I82.90 - Acute embolism and thrombosis of unspecified vein Status: Resolved Assessment and Plan: Single pulmonary embolism of mid subsegmental pulmonary artery of the right lower lobe noted on CTA of the chest on 08/24/2022 and below-knee DVT also noted at that time. * Venous doppler 10/20 showed no evidence of DVT * CTA of chest on 10/20 which showed interval resolution of lingular and right lower lobe pulmonary embolism * Continue home Eliquis Subjective Date/time seen: 10/24/22 15:32 Interval history: Date of service:? 10/23/2022 Rhea Dimas? is an 82-year-old female with history atrial fibri
--- NOTE | 2022-10-24 15:32 | PM.IMPN ---
Progress Note: A&P Assessment and Plan (1) Unwitnessed fall: Code(s): R29.6 - Repeated falls Status: Acute Assessment and Plan: Multiple falls noted in the last week. Presented to the ED after most recent fall on 10/19 Patient believes she lost her balance and did not think that she hit her head Xray showed displaced, angulated left femoral intertrochanteric fracture, possible nondisplaced fracture of the left pubic symphysis Head CT does not show any acute intracranial process Cervical spine does not show any acute fractures Fall precautions implemented Appreciate PT/OT (2) Intertrochanteric fracture of left femur: Code(s): S72.142A - Displaced intertrochanteric fracture of left femur, initial encounter for closed fracture Status: Acute Assessment and Plan: Xray shows displaced, angulated left femoral intertrochanteric fracture, possible nondisplaced fracture of the left pubic symphysis Appreciate orthopedic surgery consultation Underwent surgical repair on 10/21/[address] Mccollum Continue home eliquis for DVT prophylaxis Analgesics as need for pain. Transition to scheduled tylenol for improved pain control Continue PT/OT Planning for SNF following discharge (3) Closed fracture of left side of symphysis pubis: Code(s): S32.592A - Other specified fracture of left pubis, initial encounter for closed fracture Status: Acute Assessment and Plan: Nonsurgical, supportive care Continue PT/OT Pain medications on board (4) Heart failure with reduced ejection fraction: Code(s): I50.20 - Unspecified systolic (congestive) heart failure Status: Chronic Assessment and Plan: Appears to be a chronic combined systolic and diastolic heart failure without exacerbation Echo noted an EF of 30-35%, with diastolic dysfunction Continue Entresto and beta-malcolm. 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 Also has history of atrial fibrillation, appears onset was also in July 2022 Consider risks versus benefits of continued anticoagulation given frequent falls, however would recommend at least 3 months of systemic anticoagulation from onset of VTE and discussion with patient's soaking pits supervisor prior to discontinuation. She will need to follow up with her PCP for further monitoring (6) Epigastric pain: Code(s): R10.13 - Epigastric pain Status: Resolved Assessment and Plan: Resolved. continue with pantoprazole Tums as needed Lipase within normal limits (7) Venous thromboembolism: Code(s): I82.90 - Acute embolism and thrombosis of unspecified vein Status: Resolved Assessment and Plan: Single pulmonary embolism of mid subsegmental pulmonary artery of the right lower lobe noted on CTA of the chest on 08/24/2022 and below-knee DVT also noted at that time. Venous doppler 10/20 showed no evidence of DVT CTA of chest on 10/20 which showed interval resolution of lingular and right lower lobe pulmonary embolism Continue home Eliquis Subjective Date/time seen: 10/24/22 15:32 Interval history: Date of service:? 10/23/2022 Rhea Dimas? is an 82-year-old female with history atrial fibrillation on systemic anticoagulation, chronic kidney failure, hypertension, PE and DVT maintained on anticoagulation, TIA, osteoporosis,? and dementia? who is seen in follow-up for left hip fracture. patient is lying in bed today repeated the stating Oh God please. her daughter is present at the bedside and states that she has been checked and had pain like this and she was cleaned up just prior to my visit. States this is not unusual for her to call out lik
[2022-10-24 16:00] VITALS: BP 149/61; PULSE 92; RESP 22; TEMP 36.7; O2SAT 94
[2022-10-24 19:52] VITALS: BP 143/76; PULSE 95; RESP 18; TEMP 36; O2SAT 98
[2022-10-25] VITALS: BP 152/66; PULSE 90; RESP 18; TEMP 36.3; O2SAT 96
[2022-10-25 04:43] VITALS: BP 175/74; PULSE 89; RESP 16; TEMP 36.3; O2SAT 95
[2022-10-25 05:28] LABS: Hematocrit 30.4 % (37.0-47.0); Hemoglobin 9.7 g/dL (12.0-15.0); Mean Corpuscular HGB Conc 31.9 g/dl (32-36); Mean Corpuscular Hemoglobin 28.1 pg (26-34); Mean Corpuscular Volume 88.1 fl (80-100); Mean Platelet Volume 10.2 fl (7.4-10.4); Platelet Count Result 296 k/mm3 (150-375); Red Blood Count 3.45 M/mm3 (4.2-5.4); Red Cell Distribution Width 13.3 % (11.5-14.5); White Blood Count 9.2 K/mm3 (4.5-10.0)
[2022-10-25 05:36] LABS: Alanine Aminotransferase 12 U/L (6-35); Alkaline Phosphatase 75 U/L (38-126); Anion Gap 11 mmol/L (8-16); Aspartate Amino Transferase 26 U/L (14-36); Blood Urea Nitrogen 11 mg/dL (7-17); Calcium 8.4 mg/dL (8.4-10.2); Carbon Dioxide 27 mmol/L (22-30); Chloride 101 mmol/L (98-107); Estimated CRCL calculation 41 ml/min; Estimated Glomerular Filt Rate > 60; Glucose 87 mg/dL (65-110); Potassium 3.5 mmol/L (3.4-5.0); Sodium 139 mmol/L (137-145)
[2022-10-25] MEDS: ACETAMINOPHEN 325 MG TABLET 650 MG PO ×2 (05:42→12:09)
[2022-10-25] MEDS: HYDROcodone/acetaminophen (*CRX) 5-325 MG TABLET 1 TAB PO (08:00)
[2022-10-25] MEDS: MIRABEGRON 25 MG ER TABLET PO (08:01)
[2022-10-25] MEDS: GABAPENTIN 300 MG CAPSULE 600 MG PO (08:01)
[2022-10-25] MEDS: DOCUSATE SODIUM 100 MG CAPSULE PO (08:01)
[2022-10-25] MEDS: ASPIRIN 81 MG ENTERIC TABLET PO (08:01)
[2022-10-25] MEDS: APIXABAN 5 MG TABLET PO (08:01)
[2022-10-25] MEDS: DULoxetine HCL 30 MG CAPSULE.DR PO (08:01)
[2022-10-25] MEDS: METOPROLOL SUCCINATE EXT REL 12.5 MG TABCR PO (08:01)
[2022-10-25] MEDS: SACUBITRIL/VALSARTAN 12-13 MG TABLET 1 TAB PO (08:02)
[2022-10-25] MEDS: polyethylene glycoL 3350 17 GM POWD.PACK PO (08:02)
--- NOTE | 2022-10-25 09:42 | PM.PNORT ---
Progress Note: A&P Assessment and Plan (1) Intertrochanteric fracture of left femur: Code(s): S72.142A - Displaced intertrochanteric fracture of left femur, initial encounter for closed fracture Status: Acute Assessment and Plan: POD #4 Continue PT/OT. WBAT. Walker. HIGH FALL RISK. Continue pain control. Ice hip. Protect skin. DVT prophylaxis with resumed Eliquis. SCDs. Incentive Spirometry Use reviewed. Monitor Dressing. Change prior to discharge. Bowel Regimen. Dispo: SNF pending progress with PT/OT and medical clearance. (2) Unwitnessed fall: Code(s): R29.6 - Repeated falls Status: Acute (3) Heart failure with reduced ejection fraction: Code(s): I50.20 - Unspecified systolic (congestive) heart failure Status: Chronic Subjective Subjective Date/Time Seen: 10/25/22 09:42 Post Op day: 3 Principal diagnosis: left hip intramedullary nail with screw Interval history: POD #4: left hip intramedullary nail with screw Patient confused at baseline. No complaints of pain today. Review of Systems Review of Systems: All systems reviewed & are unremarkable except as noted in HPI and below Exam Const: General: comfortable and no acute distress Orientation/consciousness: patient oriented x3 Limitations: no limitations Resp: Effort & Inspection: normal respiratory effort Cardio: Rate: regular rate Rhythm: regular rhythm GI: Inspection: non-distended Skin: General skin exam: normal color and wounds noted (incision left hip C/D/I ) Wounds: wounds noted (incision left hip C/D/I ) Neuro: General: patient oriented x3 Extrem: Left lower extremity: hip/thigh Details: tenderness Location: of the hip Location: laterally and anteriorly, swelling (thigh soft ) Location: of the hip (lateral. ), abnormal ROM (limitations with internal/external rotation and flexion/extension due to recent surgical intervention ) and other (incision lateral hip c/d/i. ), knee Details: normal to inspection and normal ROM; no tenderness and no swelling, lower leg (Negative Alyssa's Sign ) Details: no edema, ankle (+ankle dorsiflexion/plantarflexion ) Details: normal to inspection, no edema and normal ROM; no tenderness, no swelling and no warmth and foot Details: normal capillary refill, toes with normal ROM, vascular exam Details: dorsalis pedis pulse present and motor-sensory exam light-touch normal in all toes; no tenderness, no ecchymosis and no crepitus Psych: Mental Status: mental status grossly normal Affect: normal affect Objective Data Vital Signs Vital Signs: Vital Signs - 24 hr 10/24/22 11:40 10/24/22 16:00 10/24/22 19:52 Temperature 36.8 C 36.7 C 36.0 C L Pulse Rate 92 92 95 Respiratory Rate 22 H 22 H 18 Blood Pressure 152/59 H 149/61 H 143/76 H Pulse Oximetry 95 94 98 Oxygen Delivery 10/24/22 20:00 10/25/22 00:00 10/25/22 04:43 Temperature 36.3 C L 36.3 C L Pulse Rate 90 89 Respiratory Rate 18 16 Blood Pressure 152/66 H 175/74 H Pulse Oximetry 96 95 Oxygen Delivery Room Air Intake/Output Intake/Output: Intake & Output 10/22/22 10/23/22 10/24/22 10/25/22 23:59 23:59 23:59 23:59 Intake Total 2520 2150 620 0 Output Total 500 1550 Balance 2019 600 620 0 Meds/Results Medications: Active Medications Generic Name Dose Route Start Last Admin Trade Name Freq PRN Reason Stop Dose Admin Acetaminophen 650 mg 10/24/22 18:00 10/25/22 05:42 Acetaminophen 325 Mg Tablet PO 650 mg Q6HR JENNY Administration Hydrocodone Bitart/Acetaminophen 1 tab 10/24/22 15:40 10/25/22 08:00 Hydrocodone/Acetaminophen (*Crx) 5-325 Mg Tablet PO 1 tab Q6H PRN Administration Moderate Pain (4-10) Apixaban 5 mg 10/22/22 21:00 10/25/22 08:01 Apixaban 5 Mg Tablet PO 5 mg Q12HR JENNY Administration Aspirin 81 mg 10/20/22 09:00 10/25/22 08:01 Aspirin 81 Mg Enteric Tablet PO 81 mg QAM JENNY Administration Bisacodyl 10 mg 10/21/22 16
[2022-10-25] MEDS: PANTOPRAZOLE 40 MG TABLET PO (12:10)
[2022-10-25 13:27] VITALS: BP 130/70; PULSE 108; RESP 16; TEMP 36.6; O2SAT 96
--- NOTE | 2022-10-25 14:30 | P.DS_ITS ---
DS: Admitting Diagnosis Discharge Date 10/25/2022 Admitting Diagnosis Left hip fracture DS: Discharge Diagnosis Discharge Diagnosis (1) Unwitnessed fall: Code(s): R29.6 - Repeated falls Status: Acute Assessment and Plan: Multiple falls noted in the last week. Presented to the ED after most recent fall on 10/19 * Patient believes she lost her balance and did not think that she hit her head * Xray showed displaced, angulated left femoral intertrochanteric fracture, possible nondisplaced fracture of the left pubic symphysis * Head CT did not show any acute intracranial process * Cervical spine did not show any acute fractures * Fall precautions implemented * Appreciate PT/OT (2) Intertrochanteric fracture of left femur: Code(s): S72.142A - Displaced intertrochanteric fracture of left femur, initial encounter for closed fracture Status: Acute Assessment and Plan: Xray showed displaced, angulated left femoral intertrochanteric fracture, possible nondisplaced fracture of the left pubic symphysis * Appreciate orthopedic surgery consultation * Underwent surgical repair on 10/21/[address] Mccollum * Continue home eliquis for DVT prophylaxis * Analgesics as need for pain. Scheduled tylenol for improved pain control * Continue PT/OT at SNF (3) Closed fracture of left side of symphysis pubis: Code(s): S32.592A - Other specified fracture of left pubis, initial encounter for closed fracture Status: Acute Assessment and Plan: Nonsurgical, supportive care * Continue PT/OT * Analgesics prn (4) Heart failure with reduced ejection fraction: Code(s): I50.20 - Unspecified systolic (congestive) heart failure Status: Chronic Assessment and Plan: Appears to be a chronic combined systolic and diastolic heart failure without exacerbation * Echo noted an EF of 30-35%, with diastolic dysfunction * Continue Entresto and beta-malcolm. 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 * Also has history of atrial fibrillation, appears onset was also in July 2022 * Consider risks versus benefits of continued anticoagulation given frequent falls, however would recommend at least 3 months of systemic anticoagulation from onset of VTE and discussion with patient's terminal worker prior to discontinuation. She will need to follow up with her PCP for further monitoring (6) Epigastric pain: Code(s): R10.13 - Epigastric pain Status: Resolved Assessment and Plan: Resolved. * continue with pantoprazole * Tums as needed * Lipase within normal limits (7) Venous thromboembolism: Code(s): I82.90 - Acute embolism and thrombosis of unspecified vein Status: Resolved Assessment and Plan: Single pulmonary embolism of mid subsegmental pulmonary artery of the right lower lobe noted on CTA of the chest on 08/24/2022 and below-knee DVT also noted at that time. * Venous doppler 10/20 showed no evidence of DVT * CTA of chest on 10/20 which showed interval resolution of lingular and right lower lobe pulmonary embolism * Continue home Tereza DS: Summary Hospital Course Hospital Course: Date of admission: 10/19/2022 Date of discharge: 10/25/2022 Rhea Dimas? is an 82-year-old female
--- NOTE | 2022-10-25 14:30 | PM.DS ---
DS: Admitting Diagnosis Discharge Date 10/25/2022 Admitting Diagnosis Left hip fracture DS: Discharge Diagnosis Discharge Diagnosis (1) Unwitnessed fall: Code(s): R29.6 - Repeated falls Status: Acute Assessment and Plan: Multiple falls noted in the last week. Presented to the ED after most recent fall on 10/19 Patient believes she lost her balance and did not think that she hit her head Xray showed displaced, angulated left femoral intertrochanteric fracture, possible nondisplaced fracture of the left pubic symphysis Head CT did not show any acute intracranial process Cervical spine did not show any acute fractures Fall precautions implemented Appreciate PT/OT (2) Intertrochanteric fracture of left femur: Code(s): S72.142A - Displaced intertrochanteric fracture of left femur, initial encounter for closed fracture Status: Acute Assessment and Plan: Xray showed displaced, angulated left femoral intertrochanteric fracture, possible nondisplaced fracture of the left pubic symphysis Appreciate orthopedic surgery consultation Underwent surgical repair on 10/21/[address] Mccollum Continue home eliquis for DVT prophylaxis Analgesics as need for pain. Scheduled tylenol for improved pain control Continue PT/OT at SNF (3) Closed fracture of left side of symphysis pubis: Code(s): S32.592A - Other specified fracture of left pubis, initial encounter for closed fracture Status: Acute Assessment and Plan: Nonsurgical, supportive care Continue PT/OT Analgesics prn (4) Heart failure with reduced ejection fraction: Code(s): I50.20 - Unspecified systolic (congestive) heart failure Status: Chronic Assessment and Plan: Appears to be a chronic combined systolic and diastolic heart failure without exacerbation Echo noted an EF of 30-35%, with diastolic dysfunction Continue Entresto and beta-malcolm. 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 Also has history of atrial fibrillation, appears onset was also in July 2022 Consider risks versus benefits of continued anticoagulation given frequent falls, however would recommend at least 3 months of systemic anticoagulation from onset of VTE and discussion with patient's invoice coder prior to discontinuation. She will need to follow up with her PCP for further monitoring (6) Epigastric pain: Code(s): R10.13 - Epigastric pain Status: Resolved Assessment and Plan: Resolved. continue with pantoprazole Tums as needed Lipase within normal limits (7) Venous thromboembolism: Code(s): I82.90 - Acute embolism and thrombosis of unspecified vein Status: Resolved Assessment and Plan: Single pulmonary embolism of mid subsegmental pulmonary artery of the right lower lobe noted on CTA of the chest on 08/24/2022 and below-knee DVT also noted at that time. Venous doppler 10/20 showed no evidence of DVT CTA of chest on 10/20 which showed interval resolution of lingular and right lower lobe pulmonary embolism Continue home Tereza DS: Summary Hospital Course Hospital Course: Date of admission: 10/19/2022 Date of discharge: 10/25/2022 Rhea Henriquez is an 82-year-old female with history atrial fibrillation on systemic anticoagulation, chronic kidney failure, hypertension, PE and DVT maintained on anticoagulation, TIA, osteoporosis,?and dementia who presented to the emergency department on 10/19/2022 from her memory care facility after she was found on the floor calling out for help. Patient reports falling and hitting her head and complained of left hip pain. On presentation to the ED, her vital signs are stable, she was afebrile, W
--- NOTE | 2022-10-25 15:15 | PC.NURSE ---
Patient was positive for covid on 10/07/22, could not do a placement covid swab, [facility] made aware.
== END 2022-10-25 15:28 | DRG 956 ==
LOC: ANHED 15:28 → ANH2MED 17:43
PROVIDERS: Nurse Practitioner; Orthopaedic Surgery; Physician Assistant; Admitting Provider Family Medicine; Emergency Provider Emergency Medicine; PCP Family Medicine; Visit Provider Physician Assistant
PROC: 0QS736Z Reposition Left Upper Femur with Intramedullary Internal Fixation Device, Percutaneous Approach (ICD-10-PCS; CPT 27245; principal; 2022-10-21 14:00)
DX: S72.142A Displaced intertrochanteric fracture of left femur, initial encounter for closed fracture (principal); S32.592A Other specified fracture of left pubis, initial encounter for closed fracture; I13.0 Hypertensive heart and chronic kidney disease with heart failure and stage 1 through stage 4 chronic kidney disease, or unspecified chronic kidney disease; I50.42 Chronic combined systolic (congestive) and diastolic (congestive) heart failure; I82.451 Acute embolism and thrombosis of right peroneal vein; W19.XXXA Unspecified fall, initial encounter; N18.9 Chronic kidney disease, unspecified; I48.91 Unspecified atrial fibrillation; F03.90 Unspecified dementia, unspecified severity, without behavioral disturbance, psychotic disturbance, mood disturbance, and anxiety; M81.0 Age-related osteoporosis without current pathological fracture; M47.9 Spondylosis, unspecified; R10.13 Epigastric pain; R29.6 Repeated falls; Z79.82 Long term (current) use of aspirin; Z79.01 Long term (current) use of anticoagulants; Z86.73 Personal history of transient ischemic attack (TIA), and cerebral infarction without residual deficits; Z87.891 Personal history of nicotine dependence; Z86.711 Personal history of pulmonary embolism
CPT/HCPCS: 36415; 70450; 71045; 71275; 72125; 73502; 80048; 80053; 83690; 83735; 84484; 85025; 85027; 85610; 85730; 93005; 93970; 96374; 96376; 97110; 97161; 97165; 97530; 97535; 99199; 99285; A9270; C1713; G0378; J0690; J1100; J2270; J2370; J2405; J2704; J3010; J3480; J7120; Q9967

== ENCOUNTER 2022-11-03 19:27 | Observation (INO) | payer MEDICARE, BC, SELFPAY ==
[2022-11-03] VITALS (34 sets, daily range): BP systolic 162–201; BP diastolic 74–106; PULSE 89–107; RESP 10–20; TEMP 37.1; O2SAT 96–100
--- NOTE | ~2022-11-03 | XR_ITS ---
XR chest 1V portable 11/03/2022 20:09 Indication: Status post fall. Atrial fibrillation. Hypertension. Procedure: AP portable chest Comparison: Comparison to multiple prior studies sequentially, with oldest reviewed study dated 04/05. Findings: Retrocardiac airspace consolidation. Small left pleural effusion. There is atherosclerosis. Cardiomegaly. No acute osseous abnormality. There are cholecystectomy clips. Impression: 1: Retrocardiac airspace consolidation may represent atelectasis or pneumonia. 2: Small left pleural effusion. Reviewed, dictated and finalized at location A. INIST INSTRUCTOR Impression: 1: Retrocardiac airspace consolidation may represent atelectasis or pneumonia. 2: Small left pleural effusion.
--- NOTE | ~2022-11-03 | XR_ITS ---
XR hip LT 2V w AP pelvis 11/03/2022 20:09 Indication: Status post fall. Recent hip surgery. Procedure: AP pelvis and 2 views left hip Comparison: 10/19/2022 Findings: There is a left femoral intertrochanteric fracture transfixed by intertrochanteric nail and intramedullary estrella. There is an acute nondisplaced fracture of the proximal femur medially. There is a possible nondisplaced fracture of the left pubic symphysis. Impression: 1: Acute nondisplaced oblique proximal femoral diaphyseal fracture. Reviewed, dictated and finalized at location A. S ON WHEELS DRIVER Impression: 1: Acute nondisplaced oblique proximal femoral diaphyseal fracture.
--- NOTE | 2022-11-03 19:54 | ED.GENADULT ---
HPI - General Adult General Chief complaint: Fall Stated complaint: left hip pain s/p fall Time Seen by Provider: 11/03/22 19:34 History of Present Illness HPI narrative: This is an 82-year-old female presenting ED after a fall. Patient had a left hip replacement on 10/21. Since then she has been in a [place]hab/[place] [facility] working 100 strength. Patient has severe dementia and frequently tries to stand on her own. She stood up today and fell down her side. She then started screaming my hip hurts. Patient denies any other complaints at this time. Patient is A&O x1 which is her baseline. Related Data Home Medications Medication Instructions Recorded Confirmed aspirin 81 mg tablet 81 mg PO DAILY 05/09/22 10/19/22 duloxetine 30 mg capsule,delayed 30 mg PO DAILY 05/09/22 10/19/22 release gabapentin 600 mg tablet 600 mg PO BID 05/09/22 10/19/22 omeprazole 40 mg capsule,delayed 40 mg PO DAILY 05/09/22 10/19/22 release mirabegron 25 mg tablet,extended 25 mg PO DAILY 10/19/22 10/19/22 release 24 hr (Myrbetriq) Allergies Allergy/AdvReac Type Severity Reaction Status Date / Time No Known Allergies Allergy Unknown Verified 10/19/22 18:11 Review of Systems Review of Systems: CONSTITUTIONAL: Denies night sweats. EYES: No eye pain ENT: Denies rhinorrhea CARDIOVASCULAR: Denies palpitations RESPIRATORY: Denies hemoptysis GASTROINTESTINAL: Denies hematemesis GENITOURINARY: Denies hematuria. SKIN: Denies rash MUSCULOSKELETAL: Denies myalgia. NEUROLOGIC: Denies weakness. PSYCHIATRIC: Denies delusions [facility] Past Medical History Medical History Atrial fibrillation with rapid ventricular response (07/2022) Chronic back pain Chronic renal failure Dementia Essential hypertension Heart failure with reduced ejection fraction Echo in July 2022 showed moderately reduced LV systolic function with an EF of 30 to 35%. [facility] prescription opiate use Osteoporosis Pulmonary emboli (07/2022) Spinal arthritis Thrombosis of right peroneal vein (07/2022) Transient ischemic attack Surgical History Surgical History History of spinal surgery Family History Family History Father Acute myocardial infarction Sibling Family history of pancreatic cancer Family history of type 2 diabetes mellitus Social History Social History Social History: Surrogate medical decision maker: Keeley Yoon, daughter. Code status: Full code. Smoking packs per day: 0.5 Smoking cigarettes per day: 10.0 Years smoked: 40 Smoking pack-years: 20.00 Smoking status: Former smoker Smoking end date: 11/26/76 Alcohol intake: former Alcohol use details: Rare alcohol use. Substance use: never Lack of Transportation: No Lack of Food: Never True Current Housing: I Have Housing Concerned About Future Housing: No Difficulty Paying Gas/Electric Bills: No Difficulty Paying for Meds: No Currently Unemployed: No Education: High School Diploma/GED Difficulty w/ Childcare or Family Care: No Additional living arrangements comments: Assisted living at [facility] memory care. Spiritual care concerns: No Exam Narrative: APPEARANCE: No apparent distress. Head: atraumatic. EYES: EOMI, NOSE: Atraumatic NECK: Trachea midline RESPIRATORY: No increased rate of breathing , clear to auscultation bilaterally CARDIOVASCULAR: RRR, ABDOMINAL: Non-distended MUSCULOSKELETAl: Left leg is shortened and externally rotated. Pulses are +2 patient is able to wiggle her toes and feel light touch. NEURO: Alert. Moving 4/4 extremities SKIN:: Warm, dry. Normal color PSYCHIATRIC: Normal affect Course Vital Signs Vital signs: Vital Signs Pulse Rate 93 11/03/22 19:42 Respiratory Rate 17
[2022-11-03] MEDS: SODIUM CHLORIDE 0.9% IV 1,000 ML 999 ML IV CONT (20:21)
[2022-11-03 20:35] LABS: Appearance Urine Clear (Clear); Basophils Percent Auto 0.2 % (0.2-1.2); Bilirubin Urine Negative (Negative); Blood Urine Negative (Negative); Color Urine Yellow (Yellow); Eosinophils Absolute Auto 0.4 K/mm3 (0-0.3); Eosinophils Percent Auto 2.6 % (0-4.4); Glucose Urine UA Negative (Negative); Hematocrit 34.2 % (37.0-47.0); Hemoglobin 10.5 g/dL (12.0-15.0); Immature Granulocyte Absolute 0.08 K/mm3 (0.00-0.031); Immature Granulocyte Percent A 0.6 % (0-0.5); Ketones Urine Trace mg/dL (Negative); Leukocyte Esterase Ur Negative LEU/UL (Negative); Lymphocytes Percent Auto 10.3 % (18.3-44.2); Mean Corpuscular HGB Conc 30.7 g/dl (32-36); Mean Corpuscular Hemoglobin 28.5 pg (26-34); Mean Corpuscular Volume 92.7 fl (80-100); Mean Platelet Volume 9.5 fl (7.4-10.4); Monocytes Absolute Auto 0.9 K/mm3 (0.1-0.6); Monocytes Percent Auto 6.3 % (2.6-8.5); Neutrophils Absolute Auto 10.9 K/mm3 (1.3-6.7); Nitrate Urine Negative (Negative); Platelet Count Result 491 k/mm3 (150-375); Protein Urine 1+ mg/dL (Negative); Red Blood Count 3.69 M/mm3 (4.2-5.4); Red Cell Distribution Width 14.7 % (11.5-14.5); Urobilinogen Urine 0.2 mg/dL (<2.0); White Blood Count 13.6 K/mm3 (4.5-10.0); pH Urine 5.5 (5.0-9.0)
[2022-11-03 20:38] LABS: Bacteria Urine Trace /hpf; Hyaline Casts Urine 20-29 /lpf; Mucus Urine Rare /lpf
[2022-11-03 20:40] LABS: Add Urine Microscopic? YES
[2022-11-03 20:44] LABS: Anion Gap 7 mmol/L (8-16); Blood Urea Nitrogen 15 mg/dL (7-17); Calcium 8.5 mg/dL (8.4-10.2); Carbon Dioxide 32 mmol/L (22-30); Chloride 100 mmol/L (98-107); Creatine Kinase 50 U/L (30-135); Estimated Glomerular Filt Rate 60; Glucose 110 mg/dL (65-110); INR 1.3; Potassium 3.2 mmol/L (3.4-5.0); Prothrombin Time 15.4 Seconds (11.1-14.7); Sodium 139 mmol/L (137-145)
[2022-11-03 20:45] LABS: Partial Thromboplastin Time 33.6 SECONDS (22.3-36.8)
[2022-11-03 21:11] LABS: Influenza A QL RT-PCR Negative (Negative); Influenza B QL RT-PCR Negative (Negative); SARS-CoV-2 RNA PCR Positive
[2022-11-03] MEDS: HYDROmorphone HCL INJ (*CRX) 1 MG/ML SYR 0.5 MG IV PUSH (22:15)
[2022-11-04] VITALS (10 sets, daily range): BP systolic 157–182; BP diastolic 78–88; PULSE 98–110; RESP 11–20; TEMP 36.1–37.3; O2SAT 96–100; BMI 23.1
[2022-11-04] MEDS: LACTATED RINGERS 1,000 ML 75 ML IV CONT ×2 (00:48→15:39)
--- NOTE | 2022-11-04 01:02 | PC.NURSE ---
report received from [place] ED nurse
[2022-11-04] MEDS: POTASSIUM CHLORIDE 20 MEQ TABLET 40 MEQ PO (01:09)
--- NOTE | 2022-11-04 01:15 | PC.NURSE ---
called and confirmed medication with daughter Katherin and nurse at [facility], inquired about covid + test recorded. Daughter stated tested + in September, recorded need to take pt off isolation. Pt on droplet isolation until until confirmed covid + date.
--- NOTE | 2022-11-04 01:19 | PC.NURSE ---
This patient, Rhea Dimas, was admitted to 3 [facility] Surg Room 319-01. Patient/family oriented to hospital policies and general routines including ID bracelet, bed and alarms, visiting hours, pain management, procedures, bathroom and other care routines, personal items, smoking policy, room service/diet, and visiting hours. Information on how to activate the Rapid Response Team has been discussed. Patient/Family are encouraged to report perceived risks to care and to ask questions if they do not understand what they are told or what they should do.
[2022-11-04] MEDS: HYDROcodone/acetaminophen (*CRX) 5-325 MG TABLET 1 TAB PO ×3 (01:50→18:04)
--- NOTE | 2022-11-04 01:52 | PC.NURSE ---
pt bp elevated norco given 182/86 called to inform DO Hopen, awaiting call back inquiring about hydralazine for pt bp > 180 sbp continue to monitor
[2022-11-04 09:08] LABS: Hematocrit 30.3 % (37.0-47.0); Hemoglobin 9.5 g/dL (12.0-15.0); Mean Corpuscular HGB Conc 31.4 g/dl (32-36); Mean Corpuscular Volume 92.4 fl (80-100); Mean Platelet Volume 9.5 fl (7.4-10.4); Platelet Count Result 455 k/mm3 (150-375); Red Blood Count 3.28 M/mm3 (4.2-5.4); White Blood Count 12.9 K/mm3 (4.5-10.0)
[2022-11-04 09:21] LABS: Anion Gap 7 mmol/L (8-16); Blood Urea Nitrogen 11 mg/dL (7-17); Calcium 8.3 mg/dL (8.4-10.2); Carbon Dioxide 27 mmol/L (22-30); Chloride 99 mmol/L (98-107); Estimated CRCL calculation 47 ml/min; Estimated Glomerular Filt Rate > 60; Glucose 113 mg/dL (65-110); Potassium 3.8 mmol/L (3.4-5.0); Sodium 133 mmol/L (137-145)
--- NOTE | 2022-11-04 09:54 | PM.CNOR ---
Assessment and Plan Assessment and plan (1) Femur fracture: Qualifiers: Encounter type: initial encounter Femur location: subtrochanteric Fracture type: closed Fracture alignment: displaced Laterality: left Qualified Code(s): S72.22XA - Displaced subtrochanteric fracture of left femur, initial encounter for closed fracture Code(s): S72.90XA - Unspecified fracture of unspecified femur, initial encounter for closed fracture Status: Acute Assessment and Plan: Patient known Orthopedic service for previous left hip fracture fixation 2 weeks ago. Status post fall yesterday with new fracture of the left femur. Previous surgery with intramedullary fixation which spans the length of the new fracture and provides internal fixation. No new surgery indicated. May continue with rehab as per previous. Weight-bearing as tolerated. PT/ OT. Patient at high fall risk. May continue anticoagulation. Will follow. (2) Intertrochanteric fracture of left femur: Qualifiers: Encounter type: subsequent encounter Fracture type: closed Fracture alignment: displaced Fracture healing: with routine healing Qualified Code(s): S72.142D - Displaced intertrochanteric fracture of left femur, subsequent encounter for closed fracture with routine healing Code(s): S72.142A - Displaced intertrochanteric fracture of left femur, initial encounter for closed fracture Status: Acute Assessment and Plan: Two weeks status post intramedullary fixation left hip fracture. Fracture remains well reduced. Continue with rehab protocol. Patient at high fall risk. Weightbearing as tolerated. History of Present Illness HPI Consult date: 11/04/22 Requesting physician: Neno Riley MD Chief complaint: Femur fracture Narrative: 82-year-old woman with dementia who underwent surgical repair of left hip intertrochanteric fracture October 21. Patient sustained a fall and fracture to the left femur. Her surgery was delayed for correction of anticoagulation. An uneventful postoperative course. Patient return to [facility]. By report, yesterday, fell at the [facility] on to left side. Complained of left hip and leg pain. Evaluated in the emergency room and found to have new fracture of the left femur. Also noted to be COVID positive. She was admitted for further treatment. History is per report. Patient interaction limited secondary to COVID positive. Review of Systems Constitutional: Constitutional: Denies fever(s) Eyes: Eyes: Denies blurry vision ENT: Reports Normal hearing present Cardiovascular: Cardiovascular: Denies chest pain and Denies dyspnea Respiratory: Respiratory: Denies dyspnea and Denies wheezing Gastrointestinal: Gastrointestinal: Denies abdominal pain Genitourinary: Genitourinary: Denies urinary urgency Musculoskeletal: Musculoskeletal: Reports as per HPI and Denies numbness Integumentary/Breasts: Skin/Breast: Denies changing lesions and Denies sores Neurologic: Reports Normal hearing present, Reports confusion, Denies numbness and Denies convulsions Psychiatric: Psychiatric: Denies behavioral changes, Reports confusion and Denies hallucinations Endocrine: Endocrine: Denies heat intolerance Hematologic/Lymphatic: Hematologic/Lymphatic: Denies easy bleeding Allergic/Immunologic: Allergic/Immunologic: Denies wheezing PMFSH Past Medical History Medical History Atrial fibrillation with rapid ventricular response (07/2022) Chronic back pain Chronic renal failure Dementia Essential hypertension Heart failure with reduced ejection fraction Echo in July 2022 showed moderately reduced LV systolic function with an EF of 30 to 35%. watermelon inspector prescription opiate use Osteoporosis Pulmonary emboli (07/2022) Spinal arthritis Thrombosis of right peroneal vein (07/2022) Transient ischemic attack [facility]
[2022-11-04] MEDS: METOPROLOL SUCCINATE EXT REL 12.5 MG TABCR PO (10:52)
[2022-11-04] MEDS: SACUBITRIL/VALSARTAN 12-13 MG TABLET 1 TAB PO ×2 (10:52→21:32)
[2022-11-04] MEDS: APIXABAN 5 MG TABLET PO ×2 (10:53→21:32)
[2022-11-04] MEDS: DULoxetine HCL 30 MG CAPSULE.DR PO (10:53)
[2022-11-04] MEDS: DOCUSATE SODIUM 100 MG CAPSULE PO ×2 (10:53→18:04)
[2022-11-04] MEDS: FUROSEMIDE 10 MG TABLET PO (10:53)
[2022-11-04] MEDS: FERROUS SULFATE 324 MG TABLET PO ×2 (10:53→18:04)
[2022-11-04] MEDS: MIRABEGRON 25 MG ER TABLET PO (10:53)
[2022-11-04] MEDS: PANTOPRAZOLE 40 MG TABLET PO (10:53)
[2022-11-04] MEDS: GABAPENTIN 300 MG CAPSULE PO ×2 (10:53→18:04)
--- NOTE | 2022-11-04 10:53 | PM.IMHP ---
H&P: HPI History of Present Illness Date/Time: 11/04/22 10:53 Chief Complaint: Fall Narrative: date of service: 11/04/2022 Rhea Henriquez is an 82-year-old female with history atrial fibrillation on systemic anticoagulation, chronic kidney failure, hypertension, PE and DVT maintained on anticoagulation, TIA, osteoporosis,?and progressive dementia known to myself from recent admission from 10/19-10/25/22 for left hip fracture s/p surgical repair on 10/21. patient was discharged to [facility] to complete rehab. she presented to the emergency department on 11/03/2022 from [facility] after suffering a fall with complaints of left hip pain. The patient's daughter is present at the bedside and provides most of the history as the patient is a poor historian given dementia. Her daughter, Katherin states that she has had a couple of falls in the short time that she has been at [facility]. She cannot remember that she broke her hip in consistently tries to get herself out of bed and stand up. She states this is her 3rd fall over the past week or so. The 1st time she kind of slid off the bed and suffered no injuries, the next time staff found her crawling towards the door fortunately did not suffer any injuries. Last night she stood up before anybody could come in to get her and she had a pretty hard fall and landed on the left hip. She was screaming out in pain. On presentation to the emergency department, her blood pressure was elevated at 190 4/106, likely due to pain, additional vital signs were stable, WBC 13.6, potassium 4.2, additional laboratory workup unremarkable, UA without concerns for infection, COVID PCR was positive and daughter notes that she had COVID on October 07 so suspect this to be a chronic infection, hip/pelvis x-ray showed acute nondisplaced oblique proximal femoral diaphyseal fracture. Patient is being admitted to the hospitalist service for observation and will be seen in consultation by Orthopedic surgery. Discussed with the patient's daughter/ SHANTI Jama regarding goals of care. The tellez is concerned because her dementia has been more and more progressive and she is not remembering basic safety cues. She has also had recent markedly decreased oral intake and overall poor pain control. Because of this, she would like to consider hospice informational meeting. she also mentions concern because surgical wound dressing was removed upon arrival to the hospital. She mentions that the patient frequently picks at her skin and she does not want this area to become infected. Review of Systems Review of Systems: ROS unobtainable: Yes unobtainable due to mental status PMFSH Past Medical History Medical History (Updated 11/04/22 @ 11:16 by Vivienne Zuleta PA-C) Atrial fibrillation with rapid ventricular response (07/2022) Chronic back pain Chronic renal failure Dementia Essential hypertension Fracture of left hip s/p surgical nail on 10/21 Heart failure with reduced ejection fraction Echo in July 2022 showed moderately reduced LV systolic function with an EF of 30 to 35%. 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 Code status: DNR. Smoking packs per day: 1 Smoking cigarettes per day: 20.0 Years smoked: 30 Smoking pack-years: 30.00 Smoking status: Former smoker Smoking end da
[2022-11-05 05:49] VITALS: BP 147/88; PULSE 81; RESP 14; TEMP 36.5; O2SAT 95
[2022-11-05 08:22] LABS: Hematocrit 27.8 % (37.0-47.0); Hemoglobin 8.6 g/dL (12.0-15.0); Mean Corpuscular HGB Conc 30.9 g/dl (32-36); Mean Corpuscular Hemoglobin 28.5 pg (26-34); Mean Corpuscular Volume 92.1 fl (80-100); Mean Platelet Volume 9.6 fl (7.4-10.4); Platelet Count Result 436 k/mm3 (150-375); Red Blood Count 3.02 M/mm3 (4.2-5.4); Red Cell Distribution Width 15.4 % (11.5-14.5); White Blood Count 11.7 K/mm3 (4.5-10.0)
[2022-11-05 08:40] LABS: Anion Gap 5 mmol/L (8-16); Blood Urea Nitrogen 10 mg/dL (7-17); Calcium 8.3 mg/dL (8.4-10.2); Carbon Dioxide 31 mmol/L (22-30); Chloride 101 mmol/L (98-107); Estimated CRCL calculation 47 ml/min; Estimated Glomerular Filt Rate > 60; Glucose 99 mg/dL (65-110); Potassium 3.3 mmol/L (3.4-5.0); Sodium 137 mmol/L (137-145)
[2022-11-05] MEDS: DOCUSATE SODIUM 100 MG CAPSULE PO ×2 (09:15→16:57)
[2022-11-05] MEDS: ASPIRIN 81 MG CHEWABLE TABLET PO (09:15)
[2022-11-05] MEDS: GABAPENTIN 300 MG CAPSULE PO ×2 (09:15→16:57)
[2022-11-05] MEDS: FUROSEMIDE 10 MG TABLET PO (09:16)
[2022-11-05] MEDS: PANTOPRAZOLE 40 MG TABLET PO (09:16)
[2022-11-05] MEDS: METOPROLOL SUCCINATE EXT REL 12.5 MG TABCR PO (09:16)
[2022-11-05] MEDS: FERROUS SULFATE 324 MG TABLET PO ×2 (09:16→16:57)
[2022-11-05] MEDS: MIRABEGRON 25 MG ER TABLET PO (09:16)
[2022-11-05] MEDS: SACUBITRIL/VALSARTAN 12-13 MG TABLET 1 TAB PO (09:17)
[2022-11-05] MEDS: APIXABAN 5 MG TABLET PO (09:17)
[2022-11-05] MEDS: DULoxetine HCL 30 MG CAPSULE.DR PO (09:18)
[2022-11-05] MEDS: HYDROcodone/acetaminophen (*CRX) 5-325 MG TABLET 1 TAB PO ×2 (09:18→16:57)
--- NOTE | 2022-11-05 09:29 | PM.PNORT ---
Progress Note: A&P Assessment and Plan (1) Intertrochanteric fracture of left femur: Qualifiers: Encounter type: subsequent encounter Fracture type: closed Fracture alignment: displaced Fracture healing: with routine healing Qualified Code(s): S72.142D - Displaced intertrochanteric fracture of left femur, subsequent encounter for closed fracture with routine healing Code(s): S72.142A - Displaced intertrochanteric fracture of left femur, initial encounter for closed fracture Status: Acute Assessment and Plan: POD #15 Continue PT/OT. WBAT. Walker. HIGH FALL RISK. Continue pain control. DVT prophylaxis with resumed Eliquis. Dispo: SNF pending progress with PT/OT and medical clearance. (2) Femur fracture: Qualifiers: Encounter type: subsequent encounter Femur location: subtrochanteric Fracture alignment: displaced Fracture type: closed Laterality: left Fracture healing: with routine healing Qualified Code(s): S72.22XD - Displaced subtrochanteric fracture of left femur, subsequent encounter for closed fracture with routine healing Code(s): S72.90XA - Unspecified fracture of unspecified femur, initial encounter for closed fracture Status: Acute Assessment and Plan: Day 2 status post recurrent fall With new left femur fracture. Reviewed with family and patient. Intramedullary estrella stabilizing the fracture. No indication for further surgery. No further intervention plan from orthopedic standpoint. PT/OT with weight-bearing as tolerated as pain will allow. Okay for discharge when medically stable. Follow up 5 to 6 weeks if family desires. Subjective Subjective Date/Time Seen: 11/05/22 09:29 Post Op day: 15 days Principal diagnosis: left femur fracture Interval history: patient seen and examined. Awake and up in chair. Complains of left leg pain. Family present. Exam Const: General: No confusion Orientation/consciousness: confusion HENMT: Head: normal to inspection, normocephalic and atraumatic Eyes: Conjunctivae: conjunctivae normal Sclera: sclerae normal Neck: Neck: supple and nontender Chest: Chest palpation & inspection: normal inspection of the chest Resp: Effort & Inspection: normal respiratory effort and no audible wheezes Cardio: Rate: abnormal rate Rhythm: abnormal rhythm : General: Yes deferred Skin: General skin exam: no rashes or lesions noted Neuro: General: oriented to person, No oriented to place, No oriented to time and confusion Cranial nerves: Yes Normal hearing present Extrem: General: capillary refill normal Right upper extremity: normal to inspection Left upper extremity: normal to inspection Right lower extremity: normal to inspection, hip/thigh Details: normal to inspection and normal ROM; no tenderness and no swelling, knee Details: no tenderness and no swelling, ankle Details: normal ROM (Able to flex and extend the ankle) and foot Details: vascular exam Details: dorsalis pedis pulse present and normal capillary refill, tendon exam (Moves all toes) and motor-sensory exam Details: light-touch normal Location: in all toes Left lower extremity: hip/thigh Details: tenderness Location: of the hip Location: laterally and anteriorly, swelling Location: of the hip and abnormal ROM Details: pain with passive ROM (Full motion deferred secondary to fracture) Details: with flexion, with internal rotation and with external rotation, ankle (no calf tenderness) Details: normal ROM (Able to flex/ extend ankle) and foot Details: toes with normal ROM (Moves all toes), vascular exam Details: dorsalis pedis pulse present and normal capillary refill and motor-sensory exam light-touch normal in all toes; no tenderness Other: Left hip incisions clean and dry, healed. No erythema. Mild swelling. Psych: Affect: normal affect Objective Data Vital Signs Vital Signs: Vital Signs - 24 hr 11/04/22 14:00 11/04/22 21:47
[2022-11-05] MEDS: POTASSIUM CHLORIDE 20 MEQ TABLET PO (12:08)
--- NOTE | 2022-11-05 12:51 | PM.DS ---
DS: Admitting Diagnosis Discharge Date 11/05/2022 Admitting Diagnosis Fall DS: Discharge Diagnosis Discharge Diagnosis (1) Femur fracture: Qualifiers: Encounter type: subsequent encounter Femur location: subtrochanteric Fracture alignment: displaced Fracture healing: with routine healing Fracture type: closed Laterality: left Qualified Code(s): S72.22XD - Displaced subtrochanteric fracture of left femur, subsequent encounter for closed fracture with routine healing Code(s): S72.90XA - Unspecified fracture of unspecified femur, initial encounter for closed fracture Status: Acute Assessment and Plan: patient s/p left hip fracture fixation 2 weeks ago suffered a fall on 11/03 with new fracture of left femur hip/pelvis x-ray showed acute nondisplaced oblique proximal femoral diaphyseal fracture she was seen in consultation by Orthopedic surgery no surgical intervention indicated weight-bearing as tolerated analgesics available as needed (2) Frequent falls: Code(s): R29.6 - Repeated falls Status: Acute Assessment and Plan: Patient suffered several falls at nursing facility. she does not have the presence of mind to be aware that she had recent surgery and needs assistance with ambulation, therefore has been getting up on her own and suffering falls fall precautions implemented unfortunately patient is at high fall risk (3) Dementia: Code(s): F03.90 - Unspecified dementia, unspecified severity, without behavioral disturbance, psychotic disturbance, mood disturbance, and anxiety Status: Acute Assessment and Plan: Daughter notes progressive worsening over the past several months Hospice care arranged (4) Chronic back pain: Code(s): M54.9 - Dorsalgia, unspecified; G89.29 - Other chronic pain Status: Chronic Assessment and Plan: ongoing, unchanged analgesics available as needed (5) COVID: Code(s): U07.1 - COVID-19 Status: Acute Assessment and Plan: onset 1 month ago, tested positive for COVID initially on 10/07/2022 PCR positive on 11/03/2022 patient asymptomatic and CXR without concerning findings for acute infection suspect PCR remaining positive from last infection, do not suspect acute infection patient had no oxygen requirement and no treatment is required (6) Chronic 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 Patient and family have decided to proceed with hospice care, therefore Eliquis will likely be discontinued, however this decision will be deferred to patient family and hospice DS: Summary Hospital Course Hospital Course: Date of admission: 11/03/2022 Date of discharge: 11/05/2022 Rhea Henriquez is an 82-year-old female with history atrial fibrillation on systemic anticoagulation, chronic kidney failure, hypertension, PE and DVT maintained on anticoagulation, TIA, osteoporosis,?and progressive dementia known to myself from recent admission from 10/19-10/25/22 for left hip fracture s/p surgical repair on 10/21.? patient was discharged to [facility] to complete rehab.? she presented to the emergency department on 11/03/2022 from [facility] after suffering a fall with complaints of left hip pain.?On presentation to the emergency department, her? blood pressure was elevated at 190 4/106, likely due to pain, additional vital signs were stable,? WBC 13.6, potassium 4.2, additional laboratory workup unremarkable, UA without concerns for infection, COVID PCR was positive and daughter notes that she had COVID on Nov
== END 2022-11-05 20:06 | disposition hospice, home (50) ==
LOC: ANHED 22:16 → ANH3MEDSUR 11-04 01:03
PROVIDERS: Admitting Provider Family Medicine; Emergency Provider Emergency Medicine; PCP Family Medicine; Visit Provider Physician Assistant
DX: S72.335A Nondisplaced oblique fracture of shaft of left femur, initial encounter for closed fracture (principal); W19.XXXA Unspecified fall, initial encounter; S72.22XD Displaced subtrochanteric fracture of left femur, subsequent encounter for closed fracture with routine healing; Z96.642 Presence of left artificial hip joint; U07.1 COVID-19; R29.6 Repeated falls; I48.91 Unspecified atrial fibrillation; I13.0 Hypertensive heart and chronic kidney disease with heart failure and stage 1 through stage 4 chronic kidney disease, or unspecified chronic kidney disease; E11.22 Type 2 diabetes mellitus with diabetic chronic kidney disease; N18.9 Chronic kidney disease, unspecified; I50.20 Unspecified systolic (congestive) heart failure; F03.90 Unspecified dementia, unspecified severity, without behavioral disturbance, psychotic disturbance, mood disturbance, and anxiety; J98.11 Atelectasis; G89.29 Other chronic pain; M54.9 Dorsalgia, unspecified; J90 Pleural effusion, not elsewhere classified; M47.9 Spondylosis, unspecified; M81.0 Age-related osteoporosis without current pathological fracture; Z79.82 Long term (current) use of aspirin; Z79.891 Long term (current) use of opiate analgesic; Z79.899 Other long term (current) drug therapy; Z87.891 Personal history of nicotine dependence; Z86.711 Personal history of pulmonary embolism; Z86.73 Personal history of transient ischemic attack (TIA), and cerebral infarction without residual deficits; Z86.718 Personal history of other venous thrombosis and embolism; Z83.3 Family history of diabetes mellitus; Z82.49 Family history of ischemic heart disease and other diseases of the circulatory system
CPT/HCPCS: 36415; 51702; 71045; 73502; 80048; 81001; 82550; 83735; 85025; 85027; 85610; 85730; 87636; 96361; 96365; 96375; 97110; 97161; 97166; 99285; A9270; G0378; J0131; J1170; J7030; J7120